=== PATIENT | female | born 1955 | race Caucasian/White ===

== ENCOUNTER 2022-06-14 19:23 | Observation (INO) | payer MEDICARE, MEDICAID, SELFPAY ==
[2022-06-14] VITALS (8 sets, daily range): BP systolic 104–127; BP diastolic 70–78; PULSE 82–93; RESP 20; TEMP 36.5; O2SAT 94–98
--- NOTE | ~2022-06-14 | CT_ITS ---
EXAMINATION: CT brain wo con DATE: 06/14/2022 21:32 INDICATION: Status post fall one month ago. Headache and dizziness. TECHNIQUE: Computed tomography (CT) of the head was performed without intravenous contrast. The dose- length product was 605.33 mGy-cm. Automated exposure control and iterative reconstruction technique were employed. COMPARISON: CT dated 12/28/2018 FINDINGS: Mild generalized atrophy. There are scattered mild periventricular and subcortical white ma tter changes, most likely related to small vessel ischemic disease (microangiopathy). No ventriculome jackson or midline shift. Basilar cisterns are patent. There is intracranial atherosclerosis. There is m ucosal thickening of the maxillary and ethmoid sinuses. There is a left mastoid effusion with scleros is, likely chronic findings. Right mastoid air cells are pneumatized. No depressed skull fractures. IMPRESSION: 1. No acute intracranial abnormality. 2: Chronic age-related findings. Reviewed, dictated and finalized at location A.
--- NOTE | ~2022-06-14 | XR_ITS ---
[XR ribs RT 2V w CXR 2V ] INDICATION: Right rib pain after recent fall TECHNIQUE: Frontal projection of the upper right ribs, frontal projection of the lower right ribs, ob lique projection of all the right ribs, frontal inspiratory chest x-ray for interpretation. FINDINGS: There are no displaced rib fractures identified. There are no soft tissue abnormality see n. There is right basilar airspace consolidation, suspicious for pneumonia. Heart size normal. There is a healed right humeral neck fracture. The lungs are hyperinflated which is consistent with, but no t diagnostic of chronic obstructive pulmonary disease. There are surgical clips overlying the right a pex.. IMPRESSION: 1:No acute displaced rib fractures. 2: Right basilar airspace disease, consistent with pneumonia. Reviewed, dictated and finalized at location A.
--- NOTE | 2022-06-14 20:51 | ED.GENADULT ---
HPI - General Adult General Chief complaint: Extremity Injury, Upper Stated complaint: fall two weeks ago, rib pain. fell again, head nii Time Seen by Provider: 06/14/22 20:51 History of Present Illness HPI narrative: Patient is a 67-year-old woman with history of lung cancer throat cancer with spread to the bon.e Of the left foot. She is an active smoker. History of COPD. She still smokes. The patient fell 1 month ago, on May 14, 2022, 2 times in the same day, initially struck her right lower anterior ribs and then on the 2nd fall, struck her left forehead. She has tried to manage her pain as an outpatient without much success. She comes here for evaluation today 1 month after the fall. No subsequent falls. She does feel dizzy. She also complains of a headache. No motor or sensory complaints. No other complaints such as chest pain or nausea or vomiting. Related Data Home Medications Medication Instructions Recorded Confirmed albuterol sulfate 90 mcg/actuation 2 puff inhalation QID PRN 06/14/22 06/14/22 aerosol inhaler Shortness Of Breath clonazepam 0.5 mg tablet 0.5 mg PO BID 06/14/22 06/14/22 cyclobenzaprine 10 mg tablet 10 mg PO PRN PRN Muscle Spasm 06/14/22 06/14/22 gabapentin 400 mg capsule 400 mg PO BID 06/14/22 06/14/22 mometasone 0.1 % topical solution 1 applic topical PRN PRN Itching 06/14/22 06/14/22 Allergies Allergy/AdvReac Type Severity Reaction Status Date / Time Penicillins Allergy Unknown Verified 06/14/22 21:06 Review of Systems Review of Systems: All systems reviewed & are unremarkable except as noted in HPI and below Constitutional: Constitutional: Reports as per HPI, Reports no additional constitutional complaints, Denies chills, Denies excessive sweating, Denies fatigue, Denies fever(s), Reports headache(s) and Denies weakness Eyes: Eyes: Reports as per HPI, Reports no additional eye complaints, Denies change in vision and Denies photophobia ENT: Reports system reviewed and no additional complaints, except as documented, Reports as per HPI, Denies dysphagia, Denies vertigo, Reports dizziness, Reports headache(s), Denies lip swelling, Denies nasal congestion, Denies sore throat, Denies throat swelling and Denies tongue swelling Cardiovascular: Cardiovascular: Reports as per HPI, Reports no additional cardiovascular complaints, Reports chest pain (right lower chest wall pain), Denies syncope, Denies rapid heart rate and Denies dyspnea Respiratory: Respiratory: Reports as per HPI, Reports no additional respiratory complaints, Denies chest congestion, Denies cough, Denies dyspnea and Denies wheezing Gastrointestinal: Gastrointestinal: Reports as per HPI, Reports no additional gastrointestinal complaints, Denies abdominal pain, Denies constipation, Denies dysphagia, Denies diarrhea, Denies nausea and Denies vomiting Genitourinary: Genitourinary: Reports as per HPI, Denies hematuria, Denies urinary frequency, Denies dysuria, Denies urinary incontinence and Denies urinary urgency Musculoskeletal: Musculoskeletal: Reports no additional musculoskeletal complaints, Denies back pain, Reports myalgias, Denies arthralgias, Denies joint swelling and Denies numbness Integumentary/Breasts: Skin/Breast: Reports system reviewed and no additional complaints, except as docu, Denies pruritus, Denies erythema, Denies rash and Denies skin ulcer Neurologic: Reports system reviewed and no additional complaints, except as documented, Reports as per HPI, Denies confusion, Denies vertigo, Denies dizziness, Denies syncope, Reports headache(s), Denies focal weakness, Denies numbness and Denies weakness Psychiatric: Psychiatric: Reports as per HPI, Denies anxiety, Denies confusion, Denies depression, Denies homicidal ideation and Denies suicidal ideation Endocrine: Endocrine: Reports no additional endocrine complaints, Denies excessive sweating, Denies fatigue, Denies polydipsia and Denies polyuria Hematologic/Lymphatic: Hem
[2022-06-14] MEDS: ACETAMINOPHEN 325 MG TABLET 650 MG PO (21:52)
[2022-06-14] MEDS: HYDROcodone/acetaminophen (*CRX) 5-325 MG TABLET 1 TAB PO (21:53)
[2022-06-14 22:30] LABS: Hematocrit 35.3 % (35.0-42.0); Hemoglobin 11.6 g/dL (11.7-13.8); Mean Corpuscular HGB Conc 32.9 g/dL (32.0-36.0); Mean Corpuscular Volume 97.5 fL (78.0-102.0); Mean Platelet Volume 10.1 fl (9.2-11.8); Platelet Count Result 137 K/mm3 (150-420); Red Blood Count 3.62 M/mm3 (4.20-5.40); Red Cell Distribution Width 14.3 % (11.6-14.4); White Blood Count 2.3 K/mm3 (4.8-10.8)
[2022-06-14 22:49] LABS: Lactic Acid Reflex 1.3 mmol/L (0.4-2.0)
[2022-06-14 22:56] LABS: Alanine Aminotransferase 27 U/L (14-59); Albumin Level 2.9 g/dL (3.4-5.0); Alkaline Phosphatase 96 U/L (46-116); Anion Gap 10 mmol/L (8-16); Aspartate Amino Transferase 39 U/L (15-37); Bilirubin,Total 0.3 mg/dL (0.00-1.00); Blood Urea Nitrogen 22 mg/dL (7-18); CRP 3.9 mg/dL (0.0-0.9); Carbon Dioxide 26 mmol/L (21-32); Chloride 96 mmol/L (98-108); Estimated CRCL calculation 32 ml/min; Estimated Glomerular Filt Rate 37; Glucose 109 mg/dL (70-99); Osmolality Calculated 278 mOsm/kg (285-295); Potassium 3.6 mmol/L (3.5-5.1); Sodium 132 mmol/L (136-145)
[2022-06-14 23:03] LABS: Band Neutrophils Percent 0 % (0-6); Basophils Absolute Manual 0.02 K/mm3 (0-0.1); Basophils Percent Manual 1 % (0-1); Eosinophils Absolute Manual 0.02 K/mm3 (0.02-0.5); Eosinophils Percent Manual 1 % (1-6); Lymphocytes Absolute Manual 1.08 K/mm3 (1.1-4.5); Lymphocytes Percent Manual 47 % (18-44); Monocytes Absolute Manual 0.25 K/mm3 (0.1-0.90); Monocytes Percent Manual 11 % (3-9); Neutrophils Absolute Manual 0.92 K/mm3 (1.7-7.2); Neutrophils Percent Manual 40 % (46-73); Platelet Estimate Adequate (Adequate)
[2022-06-14 23:27] LABS: Erythrocyte Sedimentation Rate 48 mm/hr (0-20)
[2022-06-15] VITALS (13 sets, daily range): BP systolic 101–114; BP diastolic 52–83; PULSE 74–96; RESP 18–22; TEMP 36.4–36.6; O2SAT 91–97; BMI 22.1
[2022-06-15] MEDS: CYCLOBENZAPRINE HCL 10 MG TABLET PO (00:03)
[2022-06-15] MEDS: MORPHINE SULFATE (*CRX) 4 MG/ML INJ IV PUSH (00:04)
[2022-06-15] MEDS: IPRATROPIUM 0.5 MG/ALBUTEROL SULFATE 2.5 MG AMPUL.NEB 3 ML INHALATION ×3 (01:29→12:57)
[2022-06-15] MEDS: guaiFENesin/DEXTROMETHORPHAN 5 ML UDC 10 ML PO (01:33)
[2022-06-15] MEDS: BENZONATATE 100 MG CAPSULE PO ×2 (01:33→13:43)
--- NOTE | 2022-06-15 01:35 | PC.NURSE ---
Order obtained for 23 hr obs admit. Call to Marifer, charge nurse and room received. Report given to Lilliana. Pt VSS at this time.
[2022-06-15 02:38] LABS: Influenza A QL RT-PCR Negative (Negative); Influenza B QL RT-PCR Negative (Negative); SARS-CoV-2 RNA PCR Positive (Negative)
[2022-06-15 02:40] LABS: RSV RNA, RT-PCR Negative (Negative)
[2022-06-15] MEDS: clonazePAM (*CRX) 0.5 MG TABLET PO (03:19)
--- NOTE | 2022-06-15 03:30 | ADMGEN ---
This patient, Shaylee Saxena, was admitted to 2nd Floor Room 204-1. Patient oriented to hospital policies and general routines including ID bracelet, bed and alarms, visiting hours, pain management, procedures, bathroom and other care routines, personal items, smoking policy, room service/diet, and visiting hours. Upon arrival, removed socks and noted black crusty dirt on feet. Socks and clothing dirty. Incontinent of stool in pants. Patient states she has a homemaker through [employer] 5-7 days per week but she(the homemaker) has not been coming as she is having family problems and patient has been relying on son that has a Traumatic Brain Injury to help her and he does not take care of her hygiene. Patient also states she lives behind the son's home and he is 30ft from her house and that she doesn't have heat as the furnace is broken. States She and her son use a small electric heater for heat. Later in the assessment patient states she sometimes would like to go to sleep and not wake up and the lord take her but she has no plans for suicide and has never had plans. She complains of nervousness and a feeling of doom. Since falling she states her left ear, that she has a hx of deafness, has been oozing fluid and her left eye has poor vision, she denies hitting her head during her 2 falls in May. During admission interview from 0150 to 0330 patient requested something for anxiety and cramps. When patient told she received flexaril in ER she said it wasn't going to work. She continued to be anxious and Later she was given Clonazepam for anxiety(see MAR), states she at times doubles up on dose as she feels real anxious and it doesn't work. Informed 1 tablet ordered as per her home medications. Information on how to activate the Rapid Response Team has been discussed. Patient/Family are encouraged to report perceived risks to care and to ask questions if they do not understand what they are told or what they should do.
[2022-06-15 05:21] LABS: Hematocrit 31.8 % (35.0-42.0); Hemoglobin 10.5 g/dL (11.7-13.8); Mean Corpuscular Hemoglobin 32.1 pg (27.0-31.0); Mean Corpuscular Volume 97.2 fL (78.0-102.0); Mean Platelet Volume 10.6 fl (9.2-11.8); Platelet Count Result 118 K/mm3 (150-420); Red Blood Count 3.27 M/mm3 (4.20-5.40); Red Cell Distribution Width 14.2 % (11.6-14.4); White Blood Count 1.8 K/mm3 (4.8-10.8)
[2022-06-15 05:37] LABS: Anion Gap 6 mmol/L (8-16); Blood Urea Nitrogen 22 mg/dL (7-18); Calcium 7.8 mg/dL (8.5-10.1); Carbon Dioxide 28 mmol/L (21-32); Chloride 99 mmol/L (98-108); Estimated CRCL calculation 30 ml/min; Estimated Glomerular Filt Rate 34; Glucose 140 mg/dL (70-99); Osmolality Calculated 281 mOsm/kg (285-295); Sodium 133 mmol/L (136-145)
[2022-06-15 05:48] LABS: Band Neutrophils Percent 0 % (0-6); Basophils Absolute Manual 0.03 K/mm3 (0-0.1); Basophils Percent Manual 2 % (0-1); Eosinophils Absolute Manual 0.03 K/mm3 (0.02-0.5); Eosinophils Percent Manual 2 % (1-6); Lymphocytes Percent Manual 56 % (18-44); Monocytes Absolute Manual 0.23 K/mm3 (0.1-0.90); Monocytes Percent Manual 13 % (3-9); Neutrophils Absolute Manual 0.48 K/mm3 (1.7-7.2); Neutrophils Percent Manual 27 % (46-73); Platelet Estimate Adequate (Adequate)
[2022-06-15] MEDS: ENOXAPARIN 40 MG/0.4 ML SYRINGE SUB-Q (08:29)
[2022-06-15] MEDS: GABAPENTIN 400 MG CAPSULE PO (08:29)
[2022-06-15] MEDS: HYDROcodone/acetaminophen (*CRX) 5-325 MG TABLET 1 TAB PO ×2 (10:13→13:44)
--- NOTE | 2022-06-15 11:50 | PC.NURSE ---
Nurse Practioner spoke with patient regarding statement that she would like to go to sleep and not wake up. Patient stated the comment was taken out of context. She is not suicidal and has not thought about hurting herself
--- NOTE | 2022-06-15 11:56 | PC.NURSE ---
Patient has a homemaker and her son who assist her and provide her meals. She uses public transportation provided by [facility]. She is aware of other food resources and financial assistance
[2022-06-15] MEDS: guaiFENesin/DEXTROMETHORPHAN 5 ML UDC PO (13:45)
--- NOTE | 2022-06-15 14:36 | PM.SD2 ---
Same Day Admit/Disch: HPI History of Present Illness Chief complaint: PNEUMONIA Narrative: Shaylee Saxena is a 67 year old female ?Patient is a 67-year-old woman with history of lung cancer throat cancer with spread to the bon.e ? Of the left foot.? She is an active smoker.? History of COPD.? She still smokes. The patient fell 1 month ago, on May 14, 2022, 2 times in the same day, initially struck her right lower anterior ribs and then? on the 2nd fall, struck her left forehead.? She has tried to manage her pain as an outpatient without much success.? She comes here for evaluation today 1 month after the fall.? No subsequent falls.? She does feel dizzy.? She also complains of a headache.? No motor or sensory complaints.? No other complaints such as chest pain or nausea or vomiting. [facility] Past Medical History Medical History (Updated 06/15/22 @ 14:39 by Venice Colin NP) Acute kidney failure COVID-19 Falls Smoking Social anxiety disorder Viral respiratory illness Family History Family History (Updated 06/15/22 @ 03:04 by Lilliana Benavides RN) Mother Colon cancer Father Heart disease Sibling Diabetes mellitus Heart disease Sibling Heart disease Sibling Diabetes mellitus Heart disease Sibling Heart disease Social History Social History Smoking packs per day: 2 Smoking cigarettes per day: 40.0 Years smoked: 51 Smoking pack-years: 102.00 Smoking status: Light tobacco smoker Tobacco type: cigarettes Second hand tobacco smoke exposure: Yes (family members smoke in front of her) Additional smoking assessment comments: states recently slowed down as she felt ill Alcohol intake: former Substance use type: does not use Lack of Transportation: YES Lack of Food: Often True Current Housing: I Have Housing Concerned About Future Housing: No Difficulty Paying Gas/Electric Bills: No Difficulty Paying for Meds: No Currently Unemployed: No Education: Grade School Difficulty w/ Childcare or Family Care: No Spiritual care concerns: Yes ([employer], would like prayers) Same Day Admit/Disch: Med Pre-admit Medications Home Medications Medication Instructions Recorded Confirmed Type clonazepam 0.5 mg tablet 0.5 mg PO BID 06/14/22 06/14/22 History cyclobenzaprine 10 mg tablet 10 mg PO PRN PRN Muscle Spasm 06/14/22 06/14/22 History gabapentin 400 mg capsule 400 mg PO BID 06/14/22 06/14/22 History mometasone 0.1 % topical solution 1 applic topical PRN PRN Itching 06/14/22 06/14/22 History albuterol sulfate 90 mcg/actuation 2 puff inhalation QID PRN 06/15/22 Rx aerosol inhaler Shortness Of Breath #8.5 grams azithromycin 250 mg tablet See Rx Instructions PO .COMPLEX #6 06/15/22 Rx (Zithromax Z-Buster) tabs benzonatate 100 mg capsule 100 mg PO TID PRN Cough #30 caps 06/15/22 Rx benzonatate 100 mg capsule 100 mg PO TID PRN cough #20 caps 06/15/22 Rx cyclobenzaprine 5 mg tablet 5 mg PO TID PRN muscle spasm #14 06/15/22 Rx tabs hydrocodone 5 mg-acetaminophen 325 1 tablet PO Q8H PRN pain #14 tabs 06/15/22 Rx mg tablet nirmatrelvir 150 mg-ritonavir 100 See Rx Instructions PO .COMPLEX 06/15/22 Rx mg tablets in a dose pack (EUA) #20 ea (Paxlovid) ondansetron 4 mg disintegrating 4 mg PO Q8H PRN nausea and 06/15/22 Rx tablet vomiting #10 tabs Exam Narrative: GENERAL:Dishevleved frail lady and in no acute distress. HEAD:Normocephalic, atraumatic. EYES: PERRLA and EOMI. ENT: Nares clear, no rhinorrhea or epistaxis. Mucous membranes moist. CHEST: Course to auscultation. No respiratory distress. coughing at times HEART: Regular rate and rhythm.Normal peripheral pulses. ABDOMEN: Soft, nontender, nondistended, normal active bowel sounds. EXTREMITIES: Normal range of motion. No edema. SKIN: Warm, dry, no rash. NEURO: No focal deficits. Alert and oriented x3. DS: Data Data Completed and Pending Lab
[2022-06-15 15:20] LABS: Appearance Urine Clear (Clear); Bilirubin Urine Negative (Negative); Blood Urine Negative (Negative); Color Urine Light Yellow (Yellow); Glucose Urine UA Negative (Negative); Ketones Urine Negative (Negative); Leukocyte Esterase Ur Negative LEU/UL (Negative); Nitrate Urine Negative (Negative); Protein Urine Negative (Negative); Urobilinogen Urine 0.2 mg/dL (0.2-1.0)
[2022-06-15 15:29] LABS: Add Urine Microscopic? NO
--- NOTE | 2022-06-15 15:29 | PC.NURSE ---
Patient given discharge instructions and and hydrocodone script. [employer] called. All family refused to transport family or did not answer phone
--- NOTE | 2022-06-15 15:33 | PC.NURSE ---
Patient informed UA was negative.
--- NOTE | 2022-06-15 15:49 | PC.NURSE ---
Staff paid for taxi and to have patient taken to pharmacy for medications
--- NOTE | 2022-06-15 15:50 | PC.NURSE ---
Patient taken to front lobby via wheelchair to taxi.. transferred self to taxi
--- NOTE | 2022-06-17 09:09 | PCCCNOTE ---
Pt had expressed concerns for not having enough money to buy food. Since pt has already discharged Care Coordination mailed Shaylee resources where she can get free food.
--- NOTE | 2022-06-17 11:46 | PC.NURSE ---
Invalid phone number for discharge call back.
== END 2022-06-15 15:40 | disposition home or self-care (01) ==
LOC: CHSED 23:50 → CHS2ND 06-15 01:41
PROVIDERS: Nurse Practitioner Family; Admitting Provider Internal Medicine; Emergency Provider Emergency Medicine; PCP Internal Medicine; Visit Provider Internal Medicine
DX: J18.9 Pneumonia, unspecified organism (principal); U07.1 COVID-19; C34.90 Malignant neoplasm of unspecified part of unspecified bronchus or lung; C79.51 Secondary malignant neoplasm of bone; J44.9 Chronic obstructive pulmonary disease, unspecified; F17.210 Nicotine dependence, cigarettes, uncomplicated; Z91.81 History of falling; N17.9 Acute kidney failure, unspecified
CPT/HCPCS: 36415; 70450; 71046; 71100; 80048; 80053; 81003; 83605; 85025; 85652; 86140; 87040; 87637; 94640; 96365; 96367; 96372; 96375; 99285; A9270; G0378; J0456; J0696; J1650; J2270

== ENCOUNTER 2022-12-02 19:33 | Emergency (ER) | payer MEDICARE, MEDICAID, SELFPAY ==
--- NOTE | ~2022-12-02 | CT_ITS ---
Non-contrast Head CT History: Headache COMPARISON: 06/14/2022 Technique: Axial non-contrast imaging of the brain was performed. Dose reduction technique was used on this scan by utilizing automated exposure control and iterative reconstruction technique. The dose -length product (DLP) was 605.33 mGy-cm. Findings: There is no evidence of intracranial hemorrhage, mass lesion, or acute infarct. Brain par enchyma appears normal. The ventricles and subarachnoid spaces are normal in size. The calvarium ap pears normal. The visualized paranasal sinuses and mastoid air cells are clear. Impression: No significant abnormality seen. Reviewed, dictated and finalized at location . Impression: No significant abnormality seen.
[2022-12-02 19:34] VITALS: BP 131/70; PULSE 97; RESP 20; TEMP 37.2; O2SAT 94
--- NOTE | 2022-12-02 20:28 | ECG_ITS ---
Measurements Intervals [place] Rate: 83 P: 81 [place]: 184 QRS: 67 QRSD: 82 T: 77 QT: 396 QTc: 467 Interpretive Statements SINUS RHYTHM BASELINE ARTIFACT- I, II, AVR, AVL, AVF, V1 NORMAL ECG NO PREVIOUS ECG AVAILABLE FOR COMPARISON Electronically Signed On 12-03-2022 7:10:27 CDT by Ha Zheng D.O.
--- NOTE | 2022-12-02 20:30 | ED.GENADULT ---
HPI - General Adult General Chief complaint: Dizziness Stated complaint: Dizziness History of Present Illness HPI narrative: Shaylee is a 67F with a PMH of smoking, pneumonia, CAD s/p stents and prior CVA presented to the ED with several months of dizziness and dysequilibrium. She has found herself always needing to be holding on to things. Today she lost her balance and had to lower her self to the ground. There was no acute change, trauma or severe change that brought her in specifically today. She reports the symptoms are constant even when she is laying down. No vision or hearing changes today. Related Data Home Medications Medication Instructions Recorded Confirmed clonazepam 0.5 mg tablet 0.5 mg PO BID 06/14/22 06/14/22 cyclobenzaprine 10 mg tablet 10 mg PO PRN PRN Muscle Spasm 06/14/22 06/14/22 gabapentin 400 mg capsule 400 mg PO BID 06/14/22 06/14/22 mometasone 0.1 % topical solution 1 applic topical PRN PRN Itching 06/14/22 06/14/22 Allergies Allergy/AdvReac Type Severity Reaction Status Date / Time Penicillins Allergy Unknown Verified 06/14/22 21:06 Review of Systems Review of Systems: All systems reviewed & are unremarkable except as noted in HPI and below PMFSH Past Medical History Medical History Acute kidney failure COVID-19 Falls Smoking Social anxiety disorder Viral respiratory illness Family History Family History Mother Colon cancer Father Heart disease Sibling Diabetes mellitus Heart disease Sibling Heart disease Sibling Diabetes mellitus Heart disease Sibling Heart disease Social History Social History Smoking packs per day: 2 Smoking cigarettes per day: 40.0 Years smoked: 51 Smoking pack-years: 102.00 Smoking status: Light tobacco smoker Tobacco type: cigarettes Second hand tobacco smoke exposure: Yes (family members smoke in front of her) Additional smoking assessment comments: states recently slowed down as she felt ill Alcohol intake: former Substance use type: does not use Lack of Transportation: YES Lack of Food: Often True Current Housing: I Have Housing Concerned About Future Housing: No Difficulty Paying Gas/Electric Bills: No Difficulty Paying for Meds: No Currently Unemployed: No Education: Grade School Difficulty w/ Childcare or Family Care: No Spiritual care concerns: Yes ([employer] of [employer], would like prayers) Exam Const: General: no acute distress and alert; No confusion Nutritional Appearance: well nourished Orientation/consciousness: patient oriented x3 HENMT: Head: normal to inspection Ears: external ears normal Face/Nose/Sinus: Normal external nose present Face and sinus: normal facial exam Eyes: Conjunctivae: conjunctivae normal Pupils: Equal, round and reactive pupils present EOM: EOMs intact bilaterally Neck: Neck: normal visual inspection Chest: Chest palpation & inspection: normal inspection of the chest Resp: Effort & Inspection: normal respiratory effort Cardio: Rate: regular rate GI: Inspection: non-distended GI Palp: Yes Soft to palpation, No Tenderness to palpation present (GI) and No Guarding due to palpation present (GI) : General: Yes no CVA tenderness Skin: General skin exam: normal color Rashes: no rashes Neuro: General: patient oriented x3 and moves all extremities Speech: normal speech Other: Multiple beats of nystagmus laterally and 2 beats vertically. Normal head impulse but right eye corrects on HINTS exam Extrem: General: normal to inspection Psych: Mental Status: mental status grossly normal Course Course Emergency Course: Ordered EKG, labs and CT as symptoms are concerning for prior CVA CBC was largely unremarkable. CMP showed continued CKD and slightly low potassium. CT Impression: No
[2022-12-02 20:50] LABS: Basophils Absolute Auto 0.06 K/mm3 (0.00-0.10); Basophils Percent Auto 1.3 % (0.0-1.0); Eosinophils Absolute Auto 0.11 K/mm3 (0.02-0.50); Eosinophils Percent Auto 2.3 % (1.0-6.0); Hematocrit 41.9 % (35.0-42.0); Hemoglobin 13.9 g/dL (11.7-13.8); Immature Granulocyte Absolute 0.01 K/mm3 (0.00-0.00); Immature Granulocyte Percent A 0.2 % (0.0-0.0); Lymphocytes Absolute Auto 1.71 K/mm3 (1.10-4.50); Lymphocytes Percent Auto 35.8 % (18.0-42.0); Mean Corpuscular HGB Conc 33.2 g/dL (32.0-36.0); Mean Corpuscular Hemoglobin 33.3 pg (27.0-31.0); Mean Corpuscular Volume 100.2 fL (78.0-102.0); Mean Platelet Volume 10.4 fl (9.2-11.8); Monocytes Absolute Auto 0.36 K/mm3 (0.10-0.90); Monocytes Percent Auto 7.5 % (2.0-11.0); Neutrophils Absolute Auto 2.5 K/mm3 (1.7-7.2); Neutrophils Percent Auto 52.9 % (50.0-70.0); Platelet Count Result 202 K/mm3 (150-420); Red Blood Count 4.18 M/mm3 (4.20-5.40); Red Cell Distribution Width 14.1 % (11.6-14.4); White Blood Count 4.8 K/mm3 (4.8-10.8)
[2022-12-02 21:30] VITALS: BP 122/71; PULSE 74; RESP 18; O2SAT 98
[2022-12-02 22:00] LABS: Alanine Aminotransferase 17 U/L (14-59); Albumin Level 3.6 g/dL (3.4-5.0); Alkaline Phosphatase 89 U/L (46-116); Anion Gap 10 mmol/L (8-16); Aspartate Amino Transferase 17 U/L (15-37); Bilirubin,Total 0.2 mg/dL (0.00-1.00); Blood Urea Nitrogen 19 mg/dL (7-18); Calcium 8.8 mg/dL (8.5-10.1); Carbon Dioxide 30 mmol/L (21-32); Chloride 104 mmol/L (98-108); Estimated CRCL calculation 27 ml/min; Estimated Glomerular Filt Rate 30; Glucose 98 mg/dL (70-99); Magnesium 1.9 mg/dL (1.8-2.4); Osmolality Calculated 300 mOsm/kg (285-295); Potassium 3.3 mmol/L (3.5-5.1); Sodium 144 mmol/L (136-145); Total Protein 7.1 g/dL (6.4-8.2)
[2022-12-02] MEDS: MECLIZINE HCL 25 MG TABLET 12.5 MG PO (22:38)
[2022-12-02 22:50] VITALS: BP 136/84; PULSE 75; RESP 20; TEMP 36.8; O2SAT 98
== END 2022-12-02 22:53 | disposition home or self-care (01) ==
PROVIDERS: Emergency Provider Family Medicine; PCP Internal Medicine
DX: R42 Dizziness and giddiness (principal); I25.10 Atherosclerotic heart disease of native coronary artery without angina pectoris; F17.210 Nicotine dependence, cigarettes, uncomplicated; Z86.73 Personal history of transient ischemic attack (TIA), and cerebral infarction without residual deficits
CPT/HCPCS: 36415; 70450; 80053; 83735; 85025; 93005; 99284; A9270

== ENCOUNTER 2023-02-12 16:06 | Emergency (ER) | payer MEDICARE, MEDICAID, SELFPAY ==
[2023-02-12] VITALS (23 sets, daily range): BP systolic 156–181; BP diastolic 82–119; PULSE 92–108; RESP 17–23; TEMP 37.1–37.3; O2SAT 94–97
--- NOTE | ~2023-02-12 | XR_ITS ---
EXAMINATION: XR chest 1V portable DATE: 02/12/2023 17:19 INDICATION: Dizziness. TECHNIQUE: A single frontal view of the chest was obtained. COMPARISON: Chest 2 views 06/14/2022, chest CT 04/09/2012 FINDINGS: A staple line and brachytherapy seeds overlie right upper lung zone. There is mild scarring at left lung base. No pleural effusion or pneumothorax. The heart size is normal. There are surgical changes of cervical spine. There is an old healed left rib fracture. IMPRESSION: 1. Mild scarring at left lung base. Reviewed, dictated and finalized at location A. 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
--- NOTE | ~2023-02-12 | CT_ITS ---
EXAMINATION: CT brain wo con DATE: 02/12/2023 17:18 INDICATION: Multiple falls. Dizziness. History of prior cerebrovascular accident TECHNIQUE: Computed tomography (CT) of the head was performed without intravenous contrast. The mA wa s adjusted according to patient size. Iterative reconstruction technique was employed. Exam dose: 60 5.33 mGy-cm total exam DLP. COMPARISON: 11/2022 CT brain FINDINGS: Bilateral vertebral artery, basilar artery and bilateral carotid siphon internal carotid ar simeon calcifications. There is nonspecific diminished attenuation of cerebral white matter, likely due to chronic small vessel ischemic changes. No intracranial mass lesion or hemorrhage or cerebrovascular accident, midline shift or mass effect i s evident. No subdural or epidural hematoma. Mild to moderate mucoperiosteal thickening of the left maxillary sinus. The included paranasal sinuse s and the mastoid air cells are otherwise unremarkable. No recent fracture or bone destruction of the cranial vault. IMPRESSION: Cerebral atherosclerosis No acute intracranial finding Reviewed, dictated and finalized at [facility]. Reviewed, dictated and finalized at [facility]. D SALES AGENT
--- NOTE | ~2023-02-12 | CT_ITS ---
EXAMINATION: CTA chest PE protocol DATE: 02/12/2023 18:24 INDICATION: DIZZY with positive D-dimer TECHNIQUE: Computed tomography angiography (CTA) of the chest was performed with 100 mL Omnipaque-350 intravenous contrast timed to evaluate the pulmonary arteries. Coronal maximum intensity projection 3D-reconstructions were created by the technologist. The dose-length product (DLP) was 190.38 mGy-cm. Automated exposure control and iterative reconstruction technique were employed. COMPARISON: X-ray chest, same date CT thorax 04/09/2012 666. FINDINGS: Lung parenchyma and airways: Senescent and emphysematous change. Right middle lobe scar. Right upper lobe scar and surgical clips. Pleura: Unremarkable. Thoracic inlet, axillae and chest wall: Unremarkable. Thoracic aorta: Mild arch calcification. Mediastinum: Normal. Heart and pericardium: Normal. Coronary artery calcifications: Mild. Upper abdomen: No significant finding. Bones: Mild anterior wedge deformity at L2. Pulmonary arteries: Study quality: Adequate. No pulmonary emboli detected. IMPRESSION: No CT evidence of acute pulmonary embolus. No acute intrathoracic process detected. Right middle lobe scar, possibly post therapeutic/post radiation change. Mild wedge compression fracture at L2 of uncertain age. Reviewed, dictated and finalized at [facility]. MONIA DISTILLER IMPRESSION: No CT evidence of acute pulmonary embolus. No acute intrathoracic process detec jennifer. Right middle lobe scar, possibly post therapeutic/post radiation change. Mild wedge compression fracture at L2 of uncertain age.
--- NOTE | 2023-02-12 16:27 | ED.SOB ---
HPI - SOB/Dyspnea General Chief Complaint: Shortness of Breath/Dyspnea Stated Complaint: SOB Time Seen by Provider: 02/12/23 16:27 Source: patient Mode of arrival: ambulatory Limitations: no limitations History of Present Illness HPI Narrative: 67-year-old female, 102 pack year smoker with a history of anxiety, pneumonia, coronary artery disease status post stent, CVA, renal insufficiency, left lung cancer status post lobectomy cis/ RT in 2012, metastatic lesion in the left leg status post RT, left tympanic membrane rupture with constant draining presents to the ER with -- shortness of breath -- dizziness and gait instability which has been off and on for the past few months. she fell 1 week ago and has crusts on forehead and nose -- hypertension MD elicited complaint: shortness of breath and cough Pertinent past history: COPD Onset (ago): day(s) Timing: constant Exacerbating factors: exertion Relieving factors: nothing Known history of: COPD Associated symptoms: pain with inspiration, cough, wheezing, chest congestion and dizziness Related Data Home Medications Medication Instructions Recorded Confirmed clonazepam 0.5 mg tablet 0.5 mg PO BID 06/14/22 06/14/22 cyclobenzaprine 10 mg tablet 10 mg PO PRN PRN Muscle Spasm 06/14/22 06/14/22 gabapentin 400 mg capsule 400 mg PO BID 06/14/22 06/14/22 mometasone 0.1 % topical solution 1 applic topical PRN PRN Itching 06/14/22 06/14/22 Allergies Allergy/AdvReac Type Severity Reaction Status Date / Time Penicillins Allergy Unknown Verified 06/14/22 21:06 Review of Systems Review of Systems: All systems reviewed & are unremarkable except as noted in HPI and below Constitutional: Constitutional: Reports as per HPI, Reports no additional constitutional complaints, Reports fatigue and Reports weakness Eyes: Eyes: Reports as per HPI Comments: decreased vision in the left eye possibly related to stroke. ENT: Reports system reviewed and no additional complaints, except as documented and Reports as per HPI Comments: constantly draining left ear secondary to tympanic membrane perforation Cardiovascular: Cardiovascular: Reports as per HPI and Reports no additional cardiovascular complaints Respiratory: Respiratory: Reports as per HPI, Reports no additional respiratory complaints, Reports chest congestion, Reports cough and Reports dyspnea Gastrointestinal: Gastrointestinal: Reports as per HPI and Reports no additional gastrointestinal complaints Genitourinary: Genitourinary: Reports no additional female genitourinary complaints Musculoskeletal: Musculoskeletal: Reports no additional musculoskeletal complaints and Reports as per HPI Integumentary/Breasts: Skin/Breast: Reports system reviewed and no additional complaints, except as docu and Reports as per HPI Comments: healed abrasions on the forehead and nose Neurologic: Reports system reviewed and no additional complaints, except as documented and Reports as per HPI Comments: left eye blindness Psychiatric: Psychiatric: Reports no additional psychiatric complaints and Reports as per HPI Endocrine: Endocrine: Reports no additional endocrine complaints and Reports as per HPI Hematologic/Lymphatic: Hematologic/Lymphatic: Reports no additional hematologic/lymphatic complaints and Reports as per HPI Allergic/Immunologic: Allergic/Immunologic: Reports no additional allergic/immunologic complaints and Reports as per HPI PMF Past Medical History Medical History Acute kidney failure COVID-19 Falls Smoking Social anxiety disorder Viral respiratory illness Family History Family History Mother Colon cancer Father Heart disease Sibling Diabetes mellitus Heart disease Sibling Heart disease Sibling Diabetes mellitus Heart disease Sibling Heart disease Social History So
--- NOTE | 2023-02-12 16:53 | ECG_ITS ---
Measurements Intervals [place] Rate: 96 P: 83 [place]: 157 QRS: 73 QRSD: 81 T: 67 QT: 390 QTc: 493 Interpretive Statements SINUS RHYTHM BORDERLINE ST ABNORMALITY- ANTEROLATERAL LEADS BASELINE ARTIFACT- I, II, III, AVR, AVL, AVF, V1 BORDERLINE ECG COMPARED TO ECG 12/02/2022 20:45:38 ST (T WAVE) DEVIATION NOW PRESENT Electronically Signed On 02-12-2023 18:51:18 BACK HAND by Ha Zheng D.O.
[2023-02-12 17:02] LABS: Influenza A QL RT-PCR Negative (Negative); Influenza B QL RT-PCR Negative (Negative); RSV RNA, RT-PCR Negative (Negative); SARS-CoV-2 RNA PCR Negative (Negative)
[2023-02-12 17:06] LABS: Appearance Urine Clear (Clear); Bilirubin Urine Negative (Negative); Blood Urine Trace-Intact (Negative); Color Urine Light Yellow (Yellow); Glucose Urine UA Negative (Negative); Ketones Urine Negative (Negative); Leukocyte Esterase Ur Trace LEU/UL (Negative); Nitrate Urine Negative (Negative); Protein Urine 2+ (Negative); Specific Grav Ur <= 1.005 (1.010-1.020); Urobilinogen Urine 0.2 mg/dL (0.2-1.0); pH Urine 6.5 (5.0-8.0)
[2023-02-12 17:14] LABS: Add Urine Microscopic? YES; RBC Urine 0-2 /hpf (0-2); Squamous Epithelial Cell Urine Rare /hpf (Few); WBC Urine 0-3 /hpf (0-3)
[2023-02-12 17:15] LABS: Bacteria Urine Rare /hpf
[2023-02-12 17:32] LABS: Base Excess ABG 3.7 mmol/L (0-2); Oxygen Content ABG 19.9 %vol (16.0-22.0); Oxygen Saturation ABG 96.8 % (95-97); Oxyhemoglobin 92.2 % (94-100); PCO2 ABG 25.9 mmHg (35-45); PO2 ABG 80.3 mmHg (80-90); Total Hemoglobin 15.3 g/dL (12.0-18.0); pH ABG 7.59 (7.35-7.45)
[2023-02-12 17:33] LABS: Basophils Absolute Auto 0.03 K/mm3 (0.00-0.10); Basophils Percent Auto 0.4 % (0.0-1.0); Eosinophils Absolute Auto 0.01 K/mm3 (0.02-0.50); Eosinophils Percent Auto 0.1 % (1.0-6.0); Hematocrit 41.4 % (35.0-42.0); Hemoglobin 14.3 g/dL (11.7-13.8); Immature Granulocyte Absolute 0.03 K/mm3 (0.00-0.00); Immature Granulocyte Percent A 0.4 % (0.0-0.0); Immature Platelet Fraction Pct 5.2 % (1.0-7.0); Lymphocytes Absolute Auto 1.04 K/mm3 (1.10-4.50); Lymphocytes Percent Auto 13.3 % (18.0-42.0); Mean Corpuscular HGB Conc 34.5 g/dL (32.0-36.0); Mean Corpuscular Hemoglobin 32.6 pg (27.0-31.0); Mean Corpuscular Volume 94.5 fL (78.0-102.0); Mean Platelet Volume 10.3 fl (9.2-11.8); Monocytes Percent Auto 6.4 % (2.0-11.0); Neutrophils Absolute Auto 6.2 K/mm3 (1.7-7.2); Neutrophils Percent Auto 79.4 % (50.0-70.0); Platelet Count Result 146 K/mm3 (150-420); Red Blood Count 4.38 M/mm3 (4.20-5.40); White Blood Count 7.8 K/mm3 (4.8-10.8)
[2023-02-12 17:34] LABS: Device ROOM AIR; Modified Allen's Test Pass; Site Drawn RIGHT RADIAL
[2023-02-12 17:46] LABS: Partial Thromboplastin Time 31.8 SEC (23.90-30.70); Prothrombin Time 11.2 Seconds (9.50-12.10)
[2023-02-12 17:49] LABS: D Dimer 1.18 mg/L (0.19-0.50)
[2023-02-12 17:51] LABS: Lactic Acid Reflex 2.3 mmol/L (0.4-2.0)
[2023-02-12 17:53] LABS: Alanine Aminotransferase 35 U/L (14-59); Albumin Level 3.8 g/dL (3.4-5.0); Alkaline Phosphatase 129 U/L (46-116); Anion Gap 10 mmol/L (8-16); Aspartate Amino Transferase 37 U/L (15-37); Bilirubin,Total 1.5 mg/dL (0.00-1.00); Blood Urea Nitrogen 15 mg/dL (7-18); Calcium 9.1 mg/dL (8.5-10.1); Carbon Dioxide 30 mmol/L (21-32); Chloride 92 mmol/L (98-108); Estimated CRCL calculation 35 ml/min; Estimated Glomerular Filt Rate 42; Glucose 143 mg/dL (70-99); Magnesium 1.4 mg/dL (1.8-2.4); NT Pro B Type Natriuretic Pept 3352 pg/mL (0-125); Osmolality Calculated 276 mOsm/kg (285-295); Potassium 3.3 mmol/L (3.5-5.1); Sodium 132 mmol/L (136-145); Total Protein 7.5 g/dL (6.4-8.2)
[2023-02-12 17:54] LABS: Troponin I 32.4 ng/L (0.00-60.4)
[2023-02-12] MEDS: LACTATED RINGERS 500 ML 999 ML IV CONT (18:23)
--- NOTE | 2023-02-12 18:26 | PC.NURSE ---
pt anxious about family members. driving at night. explained awaiting ct results. call arboleda in reach. voiced understanding
[2023-02-12] MEDS: MAGNESIUM SULF 4 GM/WATER100ML 4 GM/100 ML BAG IVPB (18:49)
[2023-02-12] MEDS: POTASSIUM CHLORIDE 20 MEQ PACKET (FOR LIQUID) PO (18:54)
--- NOTE | 2023-02-12 19:03 | PC.NURSE ---
pt resting per cot. son waiting in waiting room. awaiting ct results. call arboleda in reach. pt up to bathroom x4, bedpan x1 at this time.
--- NOTE | 2023-02-12 19:04 | PC.NURSE ---
report to raya yeager. all questions answered.
--- NOTE | 2023-02-12 19:10 | PC.NURSE ---
family in room with pt. report to raya yeager . all questions answered
[2023-02-12] MEDS: ONDANSETRON INJ 4 MG/2 ML VIAL IV PUSH (19:43)
[2023-02-12 20:28] LABS: Reflex Lactic Acid Yes or No Add Lactic
== END 2023-02-12 19:52 | disposition home or self-care (01) ==
PROVIDERS: Emergency Provider Internal Medicine Critical Care Medicine; PCP Internal Medicine
DX: R26.89 Other abnormalities of gait and mobility (principal); J44.1 Chronic obstructive pulmonary disease with (acute) exacerbation; I25.10 Atherosclerotic heart disease of native coronary artery without angina pectoris; F17.210 Nicotine dependence, cigarettes, uncomplicated; Z86.73 Personal history of transient ischemic attack (TIA), and cerebral infarction without residual deficits; Z85.118 Personal history of other malignant neoplasm of bronchus and lung; Z20.822 Contact with and (suspected) exposure to COVID-19
CPT/HCPCS: 36415; 36600; 70450; 71045; 71275; 80053; 81001; 82805; 83605; 83735; 83880; 84484; 85025; 85055; 85380; 85610; 85730; 87637; 93005; 96365; 96375; 99284; A9270; J2405; J3475; J7120; Q9967

== ENCOUNTER 2024-09-06 17:38 | Emergency (ER) | payer OTHER, SELFPAY ==
--- NOTE | ~2024-09-06 | XR_ITS ---
EXAMINATION: XR chest 2V Exam Date/Time: 09/06/2024 17:40 CDT HISTORY: sob Comparison: 02/12/2023, x-ray chest and CTPA. RESULT: Lines, tubes, and devices: Right apical surgical moose and brachytherapy implants. The cervical sp ine cerclage wires. Lungs and pleura: Hyperexpanded lungs. Right middle lobe scar/atelectasis. Bilateral hemidiaphragm t enting. No pneumothorax, pleural effusion, or focal consolidation. Cardiomediastinal silhouette: Stable. Other: No acute osseous or upper abdominal finding. Old left posterior rib fracture healed in mild d eformity. IMPRESSION: No acute cardiopulmonary process. Reviewed, dictated and finalized at [facility].
--- NOTE | 2024-09-06 17:44 | ECG_ITS ---
Test Date: 2024-09-06 18:06:49 Measurements Intervals [place] Rate: 105 P: 78 MN: 180 QRS: 62 QRSD: 84 T: 91 QT: 351 QTc: 465 Interpretive Statements SINUS TACHYCARDIA NONSPECIFIC ST & T-WAVE ABNORMALITY- ANTEROLAT/HIGH LAT LEADS BASELINE WANDER- V1-V2, V4, V6 BORDERLINE ECG No previous ECG available for comparison Electronically Signed On 09-06-2024 18:44:20 CDT by Ha Zheng D.O.
[2024-09-06 17:45] VITALS: PULSE 101
[2024-09-06 18:00] VITALS: PULSE 96; RESP 22; O2SAT 94
[2024-09-06 18:02] VITALS: PULSE 104; RESP 22
[2024-09-06] MEDS: IPRATROPIUM 0.5 MG/ALBUTEROL SULFATE 2.5 MG AMPUL.NEB 3 ML INHALATION (18:02)
[2024-09-06 18:15] VITALS: PULSE 93; PULSE 97; RESP 20; RESP 24; O2SAT 100; O2SAT 91
[2024-09-06 18:17] VITALS: BP 130/78; PULSE 94; RESP 26; O2SAT 99
[2024-09-06 18:17] LABS: Base Excess ABG -7.1 mmol/L (0-2); Carboxyhemoglobin 5.2 % (0-1.5); HCO3 ABG 19.1 mmol/L (23-29); Methemoglobin ABG 0.3 % (0-1.5); Oxygen Content ABG 20.9 %vol (16.0-22.0); Oxygen Saturation ABG 98.8 % (95-97); Oxyhemoglobin 93.4 % (94-100); PCO2 ABG 41.1 mmHg (35-45); PO2 ABG 192.3 mmHg (75-85); Reduced Hemoglobin 1.1 % (0-1.5); pH ABG 7.29 (7.35-7.45)
[2024-09-06] MEDS: methylPREDNISolone SOD SUCC 125 MG VIAL IV PUSH (18:17)
[2024-09-06 18:20] LABS: Basophils Absolute Auto 0.12 K/mm3 (0.00-0.10); Eosinophils Absolute Auto 0.02 K/mm3 (0.02-0.50); Eosinophils Percent Auto 0.3 % (1.0-6.0); Hematocrit 46.1 % (35.0-42.0); Hemoglobin 14.9 g/dL (11.7-13.8); Immature Granulocyte Absolute 0.03 K/mm3 (0.00-0.00); Immature Granulocyte Percent A 0.5 % (0.0-0.0); Lymphocytes Absolute Auto 1.06 K/mm3 (1.10-4.50); Mean Corpuscular HGB Conc 32.3 g/dL (32-36); Mean Corpuscular Hemoglobin 33.3 pg (27.0-31.0); Mean Corpuscular Volume 102.9 fL (78.0-102.0); Mean Platelet Volume 10.2 fl (9.2-11.8); Monocytes Absolute Auto 0.28 K/mm3 (0.10-0.90); Monocytes Percent Auto 4.7 % (2.0-11.0); Neutrophils Absolute Auto 4.39 K/mm3 (1.70-7.20); Neutrophils Percent Auto 74.5 % (50.0-70.0); Platelet Count Result 207 K/mm3 (150-420); Red Blood Count 4.48 M/mm3 (4.20-5.40); Red Cell Distribution Width 14.6 % (11.6-14.4); White Blood Count 5.9 K/mm3 (4.8-10.8)
[2024-09-06 18:21] LABS: Modified Allen's Test Pass; Site Drawn LEFT RADIAL
--- NOTE | 2024-09-06 18:21 | PC.NURSE ---
pt agitated with staff when trying to explain plan of care, orders placed by doctor.
[2024-09-06 18:22] LABS: Device SIMPLE MASK
[2024-09-06 18:33] LABS: D Dimer 2.39 mg/L (0.19-0.50); Ethanol 239 mg/dL (<10); Lactic Acid Reflex 4.8 mmol/L (0.4-2.0)
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
[2024-09-06 18:47] LABS: Alanine Aminotransferase 41 U/L (6-35); Anion Gap 14 mmol/L (4-12); Aspartate Amino Transferase 81 U/L (14-36); Bilirubin,Total 0.5 mg/dL (0.2-1.3); Blood Urea Nitrogen 24 mg/dL (7-17); Calcium 8.4 mg/dL (8.4-10.2); Carbon Dioxide 20 mmol/L (22-30); Chloride 108 mmol/L (98-107); Estimated Glomerular Filt Rate 39; Glucose 232 mg/dL (65-110); Magnesium 1.7 mg/dL (1.6-2.3); Osmolality Calculated 305 mOsm/kg (285-295); Potassium 3.8 mmol/L (3.4-5.0); Sodium 142 mmol/L (137-145)
[2024-09-06 18:48] LABS: Total Protein 6.7 g/dL (6.3-8.2); Troponin I 0.039 ng/mL (0.000-0.034)
[2024-09-06 18:49] LABS: Albumin Level 4.2 g/dL (3.5-5.1); Alkaline Phosphatase 83 U/L (38-126)
[2024-09-06 18:51] LABS: NT Pro B Type Natriuretic Pept 1580 pg/mL (19.9-100)
--- NOTE | 2024-09-06 18:56 | PC.NURSE ---
call placed to granddaughter jing , informed of elevated troponin. placed phone on speaker. spoke with pt. explained both d-dimer and troponin abnormal level. encouraged pt to go to closest ER for further evaluation. pt stated ill see them next week. and hung up the phone
[2024-09-06 19:38] LABS: Influenza A QL RT-PCR Negative (Negative); Influenza B QL RT-PCR Negative (Negative); RSV RNA, RT-PCR Negative (Negative); SARS-CoV-2 RNA PCR Negative (Negative)
[2024-09-06 20:16] LABS: Reflex Lactic Acid Yes or No Add Lactic
== END 2024-09-06 18:30 | disposition left against medical advice (07) ==
LOC: CHSED 17:50
PROVIDERS: Emergency Provider Emergency Medicine; PCP Internal Medicine
DX: R06.00 Dyspnea, unspecified (principal); J44.9 Chronic obstructive pulmonary disease, unspecified; R79.1 Abnormal coagulation profile; R79.89 Other specified abnormal findings of blood chemistry; F17.210 Nicotine dependence, cigarettes, uncomplicated; Z20.822 Contact with and (suspected) exposure to COVID-19
CPT/HCPCS: 36415; 36600; 71046; 80053; 82077; 82375; 82805; 83050; 83605; 83735; 83880; 84484; 85018; 85025; 85380; 87637; 93005; 94640; 96374; 99284; J2919

== ENCOUNTER 2024-12-29 14:12 | Inpatient (IN) | payer MEDICARE, SELFPAY ==
[2024-12-29] VITALS (9 sets, daily range): BP systolic 96–120; BP diastolic 61–71; PULSE 85–101; RESP 18–22; TEMP 36.2–36.7; O2SAT 80–95; BMI 19.2
--- NOTE | ~2024-12-29 | US_ITS ---
EXAMINATION: US venous doppler [facility] DATE: 01/03/2025 07:36 INDICATION: Acute pulmonary emboli. TECHNIQUE: Grayscale ultrasound images without and with compression and Doppler ultrasound images of the bilateral lower extremity veins were obtained. COMPARISON: None. FINDINGS: The visualized portions of right common femoral vein, profunda (deep) femoral vein, femoral vein, popliteal vein, peroneal veins, posterior tibial veins, and greater saphenous vein outflow are patent. The visualized portions of left common femoral vein, profunda femoral vein, femoral vein, popliteal vein, peroneal veins, posterior tibial veins, and greater saphenous vein outflow are patent. IMPRESSION: 1. No deep venous thrombosis. Reviewed, dictated and finalized at location E.
--- NOTE | ~2024-12-29 | XR_ITS ---
EXAMINATION: XR chest 2V, 01/03/2025 18:00 CDT HISTORY: possible aspiration COMPARISON: No comparisons available. Technique: 2 views obtained. Findings: Small basilar infiltrates. COPD changes. No pneumothorax. Heart is normal size. Mediastinal and hilar contours are within normal limits. Bony thorax no acute abnormality. Impression: Bilateral pneumonia Reviewed, dictated and finalized at location P. Impression: Bilateral pneumonia
--- NOTE | ~2024-12-29 | CT_ITS ---
EXAMINATION: CT cervical spine wo con COMPARISON: None HISTORY: fall TECHNIQUE: Axial images were obtained through the spine without IV contrast. Coronal, sagittal reconstruction images were obtained from the axial views. CT scan performed using dose optimization techniques including the following automated exposure control; adjustment of mA and/or kV; use of iterative reconstruction technique. Automatic exposure control was used to reduce radiation dose. Permanent radiation dose record is archived to PACS. FINDINGS: Moderate loss of vertebral height throughout, no acute fracture or subluxation, there is posterior fixation noted of C3, C4 and C5. Severe loss of disc height throughout with multilevel moderate to severe canal and foraminal stenosis. Soft tissues unremarkable. Impression: No acute abnormality. Reviewed, dictated and finalized at location P. Impression: No acute abnormality.
--- NOTE | ~2024-12-29 | CT_ITS ---
EXAMINATION: CT brain wo margaret, 12/29/2024 15:30 CDT HISTORY: fall COMPARISON: No comparisons available. Technique: Axial images obtained of the brain without contrast. One or more of the following dose reduction techniques were used: automated exposure control, adjustment of the mA and/or kV according to patient size, use of iterative reconstruction technique. Findings: No acute infarct or parenchymal hemorrhage. No abnormal mass or mass effect. No midline shift. No extra-axial fluid collections. No hydrocephalus. Mastoid air cells unremarkable. Sinuses and orbits unremarkable. No acute fracture. No significant facial or scalp soft tissue swelling evident. No radiopaque foreign body is seen. Impression: 1.No acute intracranial abnormality. Reviewed, dictated and finalized at location P. Impression: 1.No acute intracranial abnormality.
--- NOTE | ~2024-12-29 | CT_ITS ---
EXAMINATION: CTA chest PE protocol DATE: 12/30/2024 12:38 INDICATION: Dyspnea TECHNIQUE: Computed tomography (CT) pulmonary angiogram of the chest was performed with 100 mL Omnipaque-350 intravenous contrast. Additional 3D reconstructions utilizing coronal maximum intensity projection (MIP) were performed. Automated exposure control and iterative reconstruction technique were employed. The dose-length product was 308.77 mGy-cm. COMPARISON: 02/12/2023 FINDINGS: Pulmonary arterial filling defect in a subsegmental pulmonary artery in the lateral basilar segment of the right lower lobe. No other lesions suspicious for pulmonary emboli. Unchanged linear discoid atelectasis/scarring in the right upper lobe extending peripherally to multilevel surgical clips along the posterior pleura. Calcified right upper lobe pulmonary nodule along with multiple small splenic calcifications consistent with old granulomatous disease. No pneumonia, pulmonary edema, pleural effusion or pneumothorax. Heart size is normal. No leftward bowing of the ventricular septum to suggest right heart strain. Small amount scattered atherosclerotic coronary artery calcific location. No pericardial effusion. Thoracic aorta is normal in caliber with no dissection. Chronic enlargement of the central pulmonary arteries consistent with pulmonary arterial hypertension. No pathologically enlarged thoracic lymphadenopathy. Chronic compression fractures at C7-T2 which are evident on prior CT and at T5 which can be seen on chest radiograph from 09/06/2024. Calcification associated with a healing likely subacute fractures of the sternum which also appear to been present since 09/06/24. IMPRESSION: 1. Single pulmonary embolism in a subsegmental pulmonary artery in the lateral basilar segment of the right lower lobe. No associated right heart strain. Reviewed, dictated and finalized at location A.
--- NOTE | 2024-12-29 14:40 | ECG_ITS ---
Test Date: 2024-12-29 14:59:24 Measurements Intervals [place] Rate: 100 P: 93 FL: 191 QRS: 95 QRSD: 88 T: 92 QT: 375 QTc: 485 Interpretive Statements SINUS TACHYCARDIA WITH OCCASIONAL SUPRAVENTRICULAR PREMATURE COMPLEXES RIGHT AXIS DEVIATION BORDERLINE ST-T WAVE ABNORMALITY- HIGH LATERAL LEADS BASELINE ARTIFACT- I, II, III, AVR, AVL, AVF, V1-V6 BORDERLINE ECG Compared to ECG 09/06/2024 18:06:49 NO SIGNIFICANT CHANGE Electronically Signed On 12-29-2024 15:14:45 CDT by Ha Zheng D.O.
--- NOTE | 2024-12-29 14:41 | ED_ITS ---
HPI - Weakness General Chief complaint: Weakness Stated complaint: ETOH Time Seen by Provider: 12/29/24 14:39 Source: patient Mode of arrival: ambulatory Limitations: clinical condition and intoxication (Alcohol) History of Present Illness HPI Narrative: Patient is a 69-year-old female with alcoholism and living in a bur down condemned house found by EMS today. She was intoxicated and brought to the ER for further evaluation and social issues. Patient has no major complaints at this time. Some weakness. Complaint: generalized weakness Onset (ago): day(s) (One) Duration: constant Location: generalized Migration: none Severity: mild Severity scale (1-10): 2 Quality: other (No pain) Relieving factors: none Exacerbating factors: other (Alcohol) Context: other (Patient presents alcohol intoxication however she claims no alcohol taken today; she has generalized weakness and living in a unacceptable living arrangement without running water or electricity in a condemned billing) Associated symptoms: denies other symptoms Related Data Allergies Allergy/AdvReac Type Severity Reaction Status Date / Time Penicillins Allergy Unknown Verified 06/14/22 21:06 Review of Systems 2 Review of Systems: All systems reviewed & are unremarkable except as noted in HPI and below Constitutional: Constitutional: Reports no additional constitutional complaints Eyes: Eyes: Reports no additional eye complaints ENT: Reports system reviewed and no additional complaints, except as documented Cardiovascular: Cardiovascular: Reports no additional cardiovascular complaints Respiratory: Respiratory: Reports no additional respiratory complaints Gastrointestinal: Gastrointestinal: Reports no additional gastrointestinal complaints Genitourinary: Genitourinary: Reports no additional female genitourinary complaints Musculoskeletal: Musculoskeletal: Reports no additional musculoskeletal complaints Integumentary/Breasts: Skin/Breast: Reports system reviewed and no additional complaints, except as docu Neurologic: Reports system reviewed and no additional complaints, except as documented Psychiatric: Psychiatric: Reports no additional psychiatric complaints Endocrine: Endocrine: Reports no additional endocrine complaints Hematologic/Lymphatic: Hematologic/Lymphatic: Reports no additional hematologic/lymphatic complaints Allergic/Immunologic: Allergic/Immunologic: Reports no additional allergic/immunologic complaints PMF Past Medical History Medical History Smoking Falls Social anxiety disorder Viral respiratory illness Acute kidney failure COVID-19 Family History Family History Mother Colon cancer Father Heart disease Sibling Diabetes mellitus Heart disease Sibling Heart disease Sibling Diabetes mellitus Heart disease Sibling Heart disease Social History Social History Smoking packs per day: 2 Smoking cigarettes per day: 40.0 Years smoked: 51 Smoking pack-years: 102.00 Smoking status: Current every day smoker Tobacco type: cigarettes Second hand tobacco smoke exposure: Yes (family members smoke in front of her) Additional smoking assessment comments: states recently slowed down as she felt ill Alcohol intake: current Substance use: never Substance use type: does not use Lack of Transportation: YES Lack of Food: Often True Current Housing: I Have Housing Concerned About Future Housing: No Difficulty Paying Gas/Electric Bills: No Difficulty Paying for Meds: No Currently Unemployed: No Education: Grade School Difficulty w/ Childcare or Family Care: No Spiritual care concerns: No Exam 2 Const: General: no acute distress Nutritional Appearance: thin O rientation/consciousness: confusion Limitations: other limitations (Acutely intoxicated and disheveled) HENMT: Head: normal to inspection Ears: external ears normal F jaime/Nose/Sinus: Normal external nose present Eyes: Conjunctivae: conjunctivae normal Pupils: Equal, round and reactive pupils present EOM: EOMs intact bilaterally Neck: Neck: normal visual inspection Chest: Chest palpation & inspection: normal inspection of the chest Resp: Effort & Inspection: normal respiratory effort and not labored A uscultation: clear to auscultation bilaterally and no crackles Cardio: Rate: regular rate Rhythm: regular rhythm Heart sounds: no murmurs GI: Inspection: non-distended GI Palp: Yes Soft to palpation and No Tenderness to palpation present (GI) Auscultation: normal bowel sounds : General: Yes bladder normal to palpation Back/Spine/Pelvis: Back: no CVA tenderness Skin: General skin exam: normal color Rashes: no rashes Wounds: no wounds Neuro: General: No patient oriented x3, moves all extremities, no meningeal signs, no focal motor deficits and CN's II-XI intact bilaterally Other: AAO x1, Fast exam negative, NIH is 0, GCS is 15 Extrem: General: normal to inspection Psych: Mental Status: mental status grossly abnormal Affect: Anxious affect present Attitude: cooperative Other: Acute alcohol intoxication Course Vital Signs Vital signs: Vital Signs Pulse Oximetry 80 L 12/29/24 16:28 Oxygen Delivery Room Air 12/29/24 16:28 Temperature 37.1 C 12/30/24 00:00 Pulse Rate 93 12/30/24 00:00 Respiratory Rate 18 12/30/24 00:00 Blood Pressure 154/80 H 12/30/24 00:00 Pulse Oximetry 94 12/30/24 00:00 Oxygen Delivery Nasal Cannula 12/30/24 00:00 Oxygen Flow Rate 2 12/30/24 00:00 MDM - Weakness MDM Narrative Medical decision making narrative: Patient is a 69-year-old female with alcoholism here for weakness and social issues. Workup to include labs and CT scan of the head and neck. Admit patient for further monitoring of alcoholism as well as health and social care teacher to review home environment and housing options. Lab Data Attestation: I reviewed the patient's lab results. 12/29/24 14:49 12/29/24 14:49 Labs: Lab Results 12/29/24 Range/Units 14:49 WBC 4.3 L (4.8-10.8) K/mm3 RBC 4.19 L (4.20-5.40) M/mm3 Hgb 13.5 (11.7-13.8) g/dL Hct 40.4 (35.0-42.0) % MCV 96.4 (78.0-102.0) fL MCH 32.2 H (27.0-31.0) pg MCHC 33.4 (32-36) g/dL RDW 15.8 H (11.6-14.4) % Plt Count 141 L (150-420) K/mm3 MPV 10.5 (9.2-11.8) fl Immature Gran % (Auto) 0.5 H (0.0-0.0) % Neut % (Auto) 54.7 (50.0-70.0) % Lymph % (Auto) 31.3 (18.0-42.0) % Rock % (Auto) 11.6 H (2.0-11.0) % Eos % (Auto) 0.7 L (1.0-6.0) % Baso % (Auto) 1.2 H (0.0-1.0) % Lymph # (Auto) 1.35 (1.10-4.50) K/mm3 Rock # (Auto) 0.50 (0.10-0.90) K/mm3 Eos # (Auto) 0.03 (0.02-0.50) K/mm3 Baso # (Auto) 0.05 (0.00-0.10) K/mm3 Abs Immat Gran (auto) 0.02 H (0.00-0.00) K/mm3 Absolute Neuts (auto) 2.36 (1.70-7.20) K/mm3 Absolute Nucleated RBC 0.00 (0.00-0.00) K/mm3 Nucleated RBC % 0.0 (0-0.0) % % Immature Plt Fraction 4.6 (1.0-7.0) % Sodium 142 (137-145) mmol/L Potassium 3.2 L (3.4-5.0) mmol/L Chloride 98 (98-107) mmol/L Carbon Dioxide 31 H (22-30) mmol/L Anion Gap 13 H (4-12) mmol/L BUN 15 D (7-17) mg/dL Creatinine 1.71 H (0.7-1.0) mg/dL Estim Creat Clear Calc Not Reportable Estimated GFR 30 L (59 - ) Glucose 101 (65-110) mg/dL Calculated Osmolality 294 (285-295) mOsm/kg Lactic Acid 2.9 H (0.4-2.0) mmol/L Calcium 8.8 (8.4-10.2) mg/dL Total Bilirubin 0.6 (0.2-1.3) mg/dL AST 77 H (14-36) U/L ALT 41 H (6-35) U/L Alkaline Phosphatase 74 (38-126) U/L Troponin I 0.027 (0.000-0.034) ng/mL Total Protein 6.8 (6.3-8.2) g/dL Albumin 4.1 (3.5-5.1) g/dL Ethyl Alcohol > 300 H* (<10) mg/dL Imaging Data Attestation: I personally reviewed and interpreted this imaging study as follows: Radiologist's impression: CT scan of the head is negative for acute process CT scan of the cervical spine is negative for acute process ECG Data EKG #1: Attestation: I personally reviewed and interpreted this ECG as follows: ECG completion date: 10/02/25 ECG completion time: 01:10 EKG Interpretation: tachycardia, sinus rhythm, PACs, non-specific ST changes, normal QRS, normal QT and right axis Discharge Plan Discharge Clinical Impression: Alcohol intoxication, ACACIA (acute kidney injury), Acute dehydration Patient Disposition: Acute Care Hospital [facility] Condition: Stable
[2024-12-29] MEDS: SODIUM CHLORIDE 0.9% IV 1,000 ML 999 ML IV CONT (14:54)
[2024-12-29 14:59] LABS: Hematocrit 40.4 % (35.0-42.0); Hemoglobin 13.5 g/dL (11.7-13.8); Immature Granulocyte Percent A 0.5 % (0.0-0.0); Immature Platelet Fraction Pct 4.6 % (1.0-7.0); Lymphocytes Absolute Auto 1.35 K/mm3 (1.10-4.50); Mean Corpuscular HGB Conc 33.4 g/dL (32-36); Mean Corpuscular Hemoglobin 32.2 pg (27.0-31.0); Mean Corpuscular Volume 96.4 fL (78.0-102.0); Nucleated Red Blood Cells Absolute Auto 0.00 K/mm3 (0.00-0.00); Nucleated Red Blood Cells Perc 0.0 % (0-0.0); Platelet Count Result 141 K/mm3 (150-420); Red Blood Count 4.19 M/mm3 (4.20-5.40); White Blood Count 4.3 K/mm3 (4.8-10.8)
[2024-12-29 15:09] LABS: Alanine Aminotransferase 41 U/L (6-35); Albumin Level 4.1 g/dL (3.5-5.1); Alkaline Phosphatase 74 U/L (38-126); Anion Gap 13 mmol/L (4-12); Aspartate Amino Transferase 77 U/L (14-36); Bilirubin,Total 0.6 mg/dL (0.2-1.3); Blood Urea Nitrogen 15 mg/dL (7-17); Calcium 8.8 mg/dL (8.4-10.2); Carbon Dioxide 31 mmol/L (22-30); Chloride 98 mmol/L (98-107); Estimated Glomerular Filt Rate 30; Glucose 101 mg/dL (65-110); Osmolality Calculated 294 mOsm/kg (285-295); Potassium 3.2 mmol/L (3.4-5.0); Sodium 142 mmol/L (137-145); Total Protein 6.8 g/dL (6.3-8.2)
--- OUTSIDE RECORDS SUMMARY | 2024-12-29 15:16 | XMS_ITS | Encounter Summary ---
Author Organization [facility] - [facility] Address [facility] [place] [address] Care Team Providers Care Dye Feeder Name Role Phone Candida Kapoor MD Primary Care Provider [phone]- [phone] Encounter Details Date Type Department Care Team (Late st Contact Info) Description 06/14/2017 Abstract [facility] CONVERSION [address] [place] [address] , Generic Conversion, Social History Tobacco Use Types Packs/Day Years Used Date Smoking Tobacco: Never Assessed Comments Unknown Sex and Gender Information Value Date Recorded Sex Assigned at Female 05/24/2024 2:50 PM POLYMER SCIENTIST Legal Sex Female 8:54 PM CDT Gender Identity Not on file Sexual Orientation Not on file documented as of this encounter Plan of Treatment Not on file documented as of this encounter Visit Diagnoses Not on filedocumented in this encounter Additional Health Concerns Infection Onset Date Last Indicated Resolved Time MRSA 02/16/2017 02/16/2017 documented as of this encounter Care Teams Dye Feeder Relationship Specialty [place] [address] [place] [address] PCP - General INTERNAL MEDICINE 02/12/19 documented as of this encounter
--- OUTSIDE RECORDS SUMMARY | 2024-12-29 15:16 | XMS_ITS | Clinical Summary ---
Author Organization [facility] Address [address] [place] [address] Care Team Providers Care Boxing Promoter Name Role Phone Candida Kapoor MD Primary Care Provider +1- [phone] Allergies Active Allergy Reactions Criticality Noted Date Comments Amoxicillin Swelling 10/11/2020 Penicillins Swelling 10/06/2014 Medications gabapentin 300 MG capsule Take 1 capsule (300 mg total) by mouth 4 (four) times daily. Active albuterol sulfate HFA 108 (90 Base) MCG/ACT inhaler Inhale 1 puff into the lungs daily. 1 Active ipratropium-alb uterol 0.5-2.5 (3) MG/3ML Solution Take 3 mLs by nebulization daily. 1 Active mirtazapine 15 MG tablet Take 1 tablet (15 mg total) by mouth daily. 1 Active nystatin (MYCOSTATIN) cream Apply topically 2 (two) times daily. 5 g 5 Active zinc oxide (DESITIN) 20 % ointment Apply topically as needed. 5 g 5 Active Active Problems Problem Noted Date Diagnosed Date Decubitus skin ulcer 09/28/2024 UTI (urinary tract infection) 09/28/2024 Weakness 09/28/2024 Closed fracture of distal en d of left ulna, unspecified fracture morphology, initial encounter 11/30/2020 Encounters Date Type Department Care Team Description 09/27/2024 7:17 PM CDT - 09/30/2024 6:06 PM CDT Hospital Encounter [facility] [address] [place] [address] Fazal Peng DO Ishmael, Timothy L, MD Nowlan, Meagan E, MD Shortness Of Breath Discharge Disposition: Jail Facility from Last 3 Months Immunizations Immunization Administration Dates Next Due Tdap (Boostrix) 02/12/2019 Family History Medical History Relation Comments No Known Problems Brother 1 Heart Attack Brother 2 Heart Attack Brother 3 Heart Attack Father Stroke Father Cancer Mother Hypertension Mother No Known Problems Sister 1 Cancer Sister 2 Relation Status Comments Brother 1 Alive Brother 2 Brother 3 Father Mother Sister 1 Alive Sister 2 Social History Tobacco Use Types Packs/Day Years Used Date Smoking Tobacco: Every Day Cigarettes Smokeless Tobacco: Never Alcohol Use Standard Drinks/Week Comments Yes 3.3 (1 standard drink = 0.6 oz p ure alcohol) daily [facility] Utilities Answer Date Recorded In the past 12 months has [facility] [employer], gas, oil, or water [employer] threatened to shut off services in your home? Patient unable to answer 09/28/2024 Humiliation, Afraid, Rape, and Kick questionnair e Answer Date Recorded Within the last year, have y ou been afraid of your partner or ex-partner? No 09/28/2024 Within the last year, have y ou been humiliated or emotionally abused in other ways by your partner or ex-partner? No Within the last year, have y ou been kicked, hit, slapped, or otherwise physically hurt by your partner or ex-partner? No 09/28/2024 Within the last year, have y ou been raped or forced to have any kind of sexual activity by your partner or ex-partner? No 09/28/2024 Overall Financial Resource Strain (CARDIA) Answe r Date Recorded How hard is it for you to pa y for the very basics like food, housing, medical care, and heating? Somewhat hard 09/28/2024 Hunger Vital Sign Answer Date Recorded Within the past 12 months, y ou worried that your food would run out before you got the money to buy more. Often true 09/29/19 25 Within the past 12 months, t he food you bought just didn't last and you didn't have money to get more. Often true 09/28/2024 PRAPARE - Transportation Answer Date Re corded In the past 12 months, has l ack of transportation kept you from medical appointments or from getting medications? Yes 03/2024 In the past 12 months, has l ack of transportation kept you from meetings, work, or from getting things needed for daily living? Yes 09/28/2024 Housing Stability Vital Sign Answer Mynor e Recorded In the last 12 months, was t here a time when you were not able to pay the mortgage or rent on time? No 09/28/2024 In the past 12 months, how m any times have you moved where you were living? 0 09/28/2024 At any time in the past 12 m [facility], were you homeless or living in a skilled nursing (including now)? No 09/28/2024 Comments No Sex and Gender Information Value Date Recorded Sex Assigned at Female 05/24/2024 2:50 PM DIESEL LOCOMOTIVE FIRER Legal Sex Female 8:54 PM CDT Gender Identity Not on file Sexual Orientation Not on file Last Filed Vital Signs Vital Sign Reading Time Taken Comments Blood Pressure 150/71 09/30/2024 12:25 PM CDT Pulse 92 09/30/2024 12:25 PM CDT Temperature 36.8 C (98.2 F) 09/30/2024 12:25 PM CDT Respiratory Rate 20 09/30/2024 12:25 PM CDT Oxygen Saturation 99% 09/30/2024 12:25 PM CDT Inhaled Oxygen Concentration - - Weight 52.8 kg (116 lb 6.4 oz) 09/28/2024 1:10 A M CDT Height 165.1 cm (5' 5) 09/28/2024 1:02 AM CDT Body Mass Index 19.37 09/28/2024 1:02 AM CDT Plan of Treatment Health Maintenance Due Date Last Done Comments Colorectal Cancer Screening Colonoscopy (10 Years) 1957 Hepatitis C 1975 Mammogram Screening 1997 Zoster Vaccines (1 of 2) 2007 Pneumococcal Vaccine: 50+ Ye ars (2 of 2 - PCV) 06/13/2013 06/13/2012 Annual Medicare Wellness Visit 2022 Dexa Scan (General) 2022 COVID-19 Vaccine (1 - 2023-2 5 season) 2024 DTaP, Tdap and Td Vaccines ( 2 - Td or Tdap) 02/12/2029 02/12/2019 RSV Immunization or 60+ Years (1 - 1-dose 75+ series) 2032 Meningococcal B Vaccine Aged Out No l onger eligible based on patient's age to complete this topic Meningococcal Vaccine Aged Out No no bob eligible based on patient's age to complete this topic RSV Immunizations Under 20 Months Aged Out No longer eligible based on patient's age to complete this topic Procedures Procedure Name Priority Date/Time Associated Diagnosis Comments FOLIC ACID SERUM Routine 09/30/2024 5:13 AM CDT VITAMIN B-12 Routine 09/30/2024 5:13 AM CDT COMPREHENSIVE METABOLIC PANEL Routine 09/30/2024 5:13 AM CDT CBC W/DIFF AUTOMATED Routine 09/30/2024 5:13 AM CDT from Last 3 Months Results * VITAMIN B-12 (09/30/2024 5:13 AM CDT) VITAMIN B12 S/P/B 627 193 - 986 PG/ML 09/30/2024 1:38 PM CDT [facility] 09/30/2024 5:13 AM CDT Maria Guadalupe Palmer MD LABORATORY Final Result [facility] [address] [place] [address], [id number] * (ABNORMAL) COMPREHENSIVE METABOLIC PANEL (09/30/2024 5:13 AM CDT) SODIUM S/P/B 141 136 - 145 MMOL/L 09/30/2024 5:57 AM CDT [facility] POTASSIUM S/P/B 4.2 3.5 - 5.1 MMOL/L 09/30/2024 5:57 AM T [facility] CHLORIDE S/P/B 105 98 - 107 MMOL/L 09/30/2024 5:57 AM T [facility] CO2 29.9 21.0 - 32.0 MMOL/L 09/30/2024 5:57 AM T [facility] GLUCOSE 110(H) 70 - 99 MG/DL 09/30/2024 5:57 AM T [facility] Comment: FASTING GLUCOSE 100 TO 125 MG/DL IS CONSISTENT WITH IMPAIRED FASTING GLUCOSE. FASTING GLUCOSE >125 MG/DL IS CONSISTENT WITH DIABETES. RANDOM GLUCOSE >200 MG/DL WITH HYPERGLYCEMIC SYMPTOMS IS CONSISTENT WITH DIABETES. PER ADA GUIDELINES BUN 16 6 - 24 MG/DL 09/30/2024 5:57 AM T [facility] CREATININE S/P/B 0.91 0.55 - 1.02 MG/DL 09/30/2024 5:57 AM T [facility] CALCIUM S/P/B 8.7 8.4 - 10.5 MG/DL 09/30/2024 5:57 AM T [facility] BILIRUBIN TOTAL S/P/B 0.3 0.2 - 1.0 MG/DL 09/30/2024 5:57 AM [facility] Comment: THIS ASSAY IS NOT RECOMMENDED FOR PATIENTS UNDERGOING TREATMENT WITH ELTROMBOPAG DUE TO THE POTENTIAL FOR FALSELY ELEVATED RESULTS. ALKALINE PHOSPHATASE S/P/B 131 55 - 142 U/L 09/30/2024 5:57 AM T [facility] AST 66(H) 15 - 37 U/L 09/30/2024 5:57 AM [facility] ALT 58 14 - 59 U/L 09/30/2024 5:57 AM T [facility] TOTAL PROTEIN S/P/B 5.6(L) 6.4 - 8.2 G/DL 09/30/2024 5:57 AM T [facility] ALBUMIN S/P/B 2.4(L) 3.4 - 5.0 G/DL 09/30/2024 5:57 AM T [facility] ANION GAP 6.1 5.0 - 15.0 MMOL/L 09/30/2024 5:57 AM CDT [facility] OSMOLALITY (CALC) 294 MOSM/KG 025 5:57 AM CDT [facility] Comment:REFERENCE RANGE NOT ESTABLISHED GFR ESTIMATE 69(L) >89 ML/MIN/1. 73 M2 09/30/2024 5:57 AM CDT [facility] GFR NOTES GFR REFERENCE S: 09/30/2024 5:57 AM CDT [facility] Comment: THE ESTIMATED GFR IS CALCULATED USING THE 2020 CKD-EPI EQUATION. THE FOLLOWING CATEGORIES FOR GRADING RENAL FUNCTION ARE RECOMMENDED BY THE INTERNATIONAL SOCIETY OF NEPHROLOGY (KDIGO 2012 CLINICAL PRACTICE GUIDELINE). G1,NORMAL OR HIGH: >89 ml/min/1.73 m2 G2,MILDLY DECREASED: 60-89 ml/min/1.73 m2 G3A,MILDLY TO MODERATELY DECREASED: 45-59 ml/min/1.73 m2 G3B,MODERATELY TO SEVERELY DECREASED: 30-44 ml/min/1.73 m2 G4,SEVERELY DECREASED: 15-29 ml/min/1.73 m2 G5,KIDNEY FAILURE: <15 ml/min/1.73 m2 09/30/2024 5:13 AM CDT us Maria Guadalupe Palmer MD LABORATORY Final Result Performing Organization Address City/[facility]/ZIP Co de Phone Number [facility] [address] [place] [address], * FOLIC ACID SERUM (09/30/2024 5:13 AM CDT) FOLATE 6.6 3.1 - 17.5 NG/ML 09/30/2024 1:38 PM CDT [facility] 09/30/2024 5:13 AM CDT us Maria Guadalupe Palmer MD LABORATORY Final Result [facility] [address] [place] [address], [place] [phone] [id number] * (ABNORMAL) CBC W/DIFF AUTOMATED (09/30/2024 5:13 AM CDT) WBC 2.80(L) 4.00 - 10.80 x10'3/uL 09/30/2024 5:45 AM CDT [facility] RBC 3.05(L) 4.10 - 5.40 x10'6/uL 09/30/2024 5:45 AM CDT [facility] HGB 10.6(L) 12.0 - 16.0 G/DL 09/30/2024 5:45 AM CDT [facility] HCT 32.2(L) 36.0 - 47.0 % 09/30/2024 5:45 AM CDT [facility] MCV 105.6(H) 78.0 - 100.0 FL 09/30/2024 5:45 AM CDT [facility] MCH 34.8(H) 27.0 - 31.0 PG 09/30/2024 5:45 AM CDT [facility] MCHC 32.9(L) 33.0 - 36.0 G/DL 09/30/2024 5:45 AM CDT [facility] RDW 15.0(H) 11.5 - 14.5 % 09/30/2024 5:45 AM CDT [facility] PLT 150 150 - 350 x10'3/uL 09/30/2024 5:45 AM CDT [facility] MPV 10.5(H) 7.4 - 10.4 FL 09/30/2024 5:45 AM CDT [facility] CBC COMMENT NORMAL REFERENCE RANGE NOT ESTABLISHED FOR THE PROPORTIONAL LEUKOCYTE DIFFERENTIAL. 09/30/2024 5:45 AM CDT [facility] NEUTROPHILS % 52.4 % 09/30/2024 5:45 AM CDT [facility] LYMPHOCYTES % 30.4 % 09/30/2024 5:45 AM CDT [facility] MONOCYTES % 12.5 % 09/30/2024 5:45 AM CDT [facility] EOSINOPHILS % 2.9 % 09/30/2024 5:45 AM CDT [facility] BASOPHILS % 1.8 % 09/30/2024 5:45 AM CDT [facility] IMMATURE GRANS % 0.0 % 10/01/19 5:45 AM CDT [facility] NRBC % 0.0 % 09/30/2024 5:45 AM CDT [facility] ABS. NEUTROPHILS 1.47(L) 1.60 - 8.30 x10'3/uL 09/30/2024 5:45 AM CDT [facility] ABS. LYMPHOCYTES 0.85 0.80 - 4.70 x10'3/uL 09/30/2024 5:45 AM CDT [facility] ABS. MONOCYTES 0.35 0.00 - 1.50 x10'3/uL 09/30/2024 5:45 AM CDT [facility] ABS. EOSINOPHILS 0.08 0.00 - 0.40 x10'3/uL 09/30/2024 5:45 AM CDT [facility] ABS. BASOPHILS 0.05 0.00 - 0.20 x10'3/uL 09/30/2024 5:45 AM CDT [facility] ABS. IMMATURE GRANULOCYTES 0.00 0.00 - 0.03 x10'3/uL 09/30/2024 5:45 AM CDT [facility] ABS. NUCLEATED RBC'S 0.00 0.00 - 0.01 x10'3/uL 09/30/2024 5:45 AM CDT [facility] 09/30/2024 5:13 AM CDT Maria Guadalupe Palmer MD LABORATORY Final Result [facility] [address] [place] [address], from Last 3 Months Additional Health Concerns Infection Onset Date Last Indicated MRSA 02/16/2017 02/16/2017 Insurance [facility] Advance Directives * Full Code (Latest Code Status on File) Date Activated Date Inactivated Comments 09/28/2024 12:29 AM 09/30/2024 8:11 PM Care Teams Boxing Promoter Relationship Specialty [place] [address] [place] [address] PCP - General INTERNAL MEDICINE 02/12/19
--- OUTSIDE RECORDS SUMMARY | 2024-12-29 15:16 | XMS_ITS | Encounter Summary ---
Author Organization [facility] Address [facility] [place] [address] Care Team Providers Care Knot Tier Name Role Phone Candida Kapoor MD Primary Care Provider +1- [phone] Encounter Details Date Type Department Care Team (Late st Contact Info) Description 09/05/2018 Abstract [facility] CONVERSION [address] [place] [address] , Generic Conversion, Social History Tobacco Use Types Packs/Day Years Used Date Smoking Tobacco: Never Assessed Comments Unknown Sex and Gender Information Value Date Recorded Sex Assigned at Female 05/24/2024 2:50 PM HUMAN RESOURCES ADMINISTRATOR Legal Sex Female 8:54 PM CDT Gender Identity Not on file Sexual Orientation Not on file documented as of this encounter Plan of Treatment Not on file documented as of this encounter Visit Diagnoses Not on filedocumented in this encounter Additional Health Concerns Infection Onset Date Last Indicated Resolved Time MRSA 02/16/2017 02/16/2017 documented as of this encounter Care Teams Knot Tier Relationship Specialty Start [place] [address] [place] [address] PCP - General INTERNAL MEDICINE 02/12/19 documented as of this encounter
[2024-12-29 15:29] LABS: Troponin I 0.027 ng/mL (0.000-0.034)
--- NOTE | 2024-12-29 15:30 | PC.NURSE ---
Lab calls with critical ETOH: >300. ERP made aware.
--- NOTE | 2024-12-29 16:48 | PC.NURSE ---
oracle data warehouse developer called for bed placement. Pt will go to bed 206
[2024-12-29] MEDS: THIAMINE HCL 200 MG/2 ML VIAL 100 MG IV PUSH (16:56)
--- OUTSIDE RECORDS SUMMARY | 2024-12-29 17:00 | XMS_ITS | Encounter Summary ---
Author Organization [facility] Address [facility] [place] [address] Care Team Providers Care Restaurant Shift Leader Name Role Phone Candida Kapoor MD Primary Care Provider +1- [phone] Encounter Details Date Type Department Care Team (Late st Contact Info) Description 09/05/2018 Abstract [facility] CONVERSION [address] [address] , Generic Conversion, Social History Tobacco Use Types Packs/Day Years Used Date Smoking Tobacco: Never Assessed Comments Unknown Sex and Gender Information Value Date Recorded Sex Assigned at Female 05/24/2024 2:50 PM REFRIGERATOR ASSEMBLER Legal Sex Female 8:54 PM CDT Gender Identity Not on file Sexual Orientation Not on file documented as of this encounter Plan of Treatment Not on file documented as of this encounter Visit Diagnoses Not on filedocumented in this encounter Additional Health Concerns Infection Onset Date Last Indicated Resolved Time MRSA 02/16/2017 02/16/2017 documented as of this encounter Care Teams Restaurant Shift Leader Relationship Specialty [place] [address] [place] [address] PCP - General INTERNAL MEDICINE 02/12/19 documented as of this encounter
--- OUTSIDE RECORDS SUMMARY | 2024-12-29 17:00 | XMS_ITS | Encounter Summary ---
Author Organization [facility] Address [facility] [place] [address] Care Team Providers Care Funeral Home Assistant Name Role Phone Cadnida Kapoor MD Primary Care Provider [phone]- [phone] Encounter Details Date Type Department Care Team (Late st Contact Info) Description 06/14/2017 Abstract [facility] CONVERSION [address] [place] [address] , Generic Conversion, Social History Tobacco Use Types Packs/Day Years Used Date Smoking Tobacco: Never Assessed Comments Unknown Sex and Gender Information Value Date Recorded Sex Assigned at Female 05/24/2024 2:50 PM MICROBIOLOGY SOIL SCIENTIST Legal Sex Female 8:54 PM CDT Gender Identity Not on file Sexual Orientation Not on file documented as of this encounter Plan of Treatment Not on file documented as of this encounter Visit Diagnoses Not on filedocumented in this encounter Additional Health Concerns Infection Onset Date Last Indicated Resolved Time MRSA 02/16/2017 02/16/2017 documented as of this encounter Care Teams Funeral Home Assistant Relationship Specialty [place] [address] [place] [address] PCP - General INTERNAL MEDICINE 02/12/19 documented as of this encounter
[2024-12-29] MEDS: KCL 20 MEQ/SW 100 ML 100 ML 50 MEQ IVPB (17:16)
--- NOTE | 2024-12-29 17:40 | ADMGEN ---
This patient, Shaylee Saxena, was admitted to 2nd Floor Room 206-1. Patient/family oriented to hospital policies and general routines including ID bracelet, bed and alarms, visiting hours, pain management, procedures, bathroom and other care routines, personal items, smoking policy, room service/diet, and visiting hours. Information on how to activate the Rapid Response Team has been discussed. Patient/Family are encouraged to report perceived risks to care and to ask questions if they do not understand what they are told or what they should do.
--- NOTE | 2024-12-29 17:53 | PC.NURSE ---
Pt belongings and chart transported to pt room 206
--- NOTE | 2024-12-29 18:27 | PC.NURSE ---
Refuses oxygen, advised oxygen level low, refuses to wear. telemetry on sinus tach noted, harsh cough noted, states every day smoker, drinks occassionally, only beer, smells of ETOH
[2024-12-29 19:18] LABS: Add Urine Microscopic? YES; Glucose Urine UA Negative (Negative); Leukocyte Esterase Ur Negative LEU/UL (Negative); Nitrate Urine Negative (Negative); Specific Grav Ur 1.010 (1.010-1.020)
[2024-12-29 19:26] LABS: Appearance Urine Sl Cloudy (Clear)
[2024-12-29 19:53] LABS: Cannabinoid Screen Urine Negative (Negative)
[2024-12-29] MEDS: SODIUM CHLORIDE 0.9% IV 1,000 ML 200 ML IV CONT (20:24)
[2024-12-29] MEDS: DEXTROSE 5%/0.45% SOD CHL 1,000 ML 100 ML IV CONT (20:40)
[2024-12-29] MEDS: ONDANSETRON INJ 4 MG/2 ML VIAL IV PUSH (20:43)
--- NOTE | 2024-12-29 22:00 | PC.NURSE ---
Patient noted to be very unkempt. Hands and feet visibly dirty. Uncooperative. Will not allow nurses to do any part of assessment. When patient assisted to bedside commode she was very unsteady, would not wait for gait belt to be put on. Patient's shorts noted to have large smears of BM in them. Patient refused to take them off, refused offer of depend and gown. Would only wear her own clothing. Patient's SpO2 at 87% on room air with 2000 vitals check. Patient complains of not being able to breathe but will not leave her oxygen cannula in place, saying she can't breathe with it 0n. SpO2 raised to 95% when patient will wear cannula. Call light in reach.
[2024-12-30] VITALS (7 sets, daily range): BP systolic 140–155; BP diastolic 74–80; PULSE 57–93; RESP 18–32; TEMP 36.7–37.1; O2SAT 89–100
--- NOTE | 2024-12-30 | CONSULT_PTH ---
PATIENT: Shaylee Saxena LOC: [facility] U#:[id number] AGE/SX: 69/F ROOM: [facility] RE12/30/[address]: Soren Porter MD : [id number] BED: 1 DIS: 01/07/2025 SPEC #: [id number] RECD: 12/30/24 07:01 STATUS: CESAR MOFFETT #: [id number] CARIDAD: 12/30/24 00:[address]: Moe Porter DEPT: [facility] Consult RECD BY: Faith Negron MLT, ([facility]) Tissues: A - Peripheral Smear Procedures: Hematology Consult
[2024-12-30] MEDS: ACETAMINOPHEN 325 MG TABLET 650 MG PO ×2 (00:22→20:37)
[2024-12-30 05:36] LABS: Hematocrit 38.1 % (35.0-42.0); Hemoglobin 12.2 g/dL (11.7-13.8); Mean Corpuscular HGB Conc 32.0 g/dL (32-36); Mean Corpuscular Hemoglobin 31.7 pg (27.0-31.0); Mean Corpuscular Volume 99.0 fL (78.0-102.0); Platelet Count Result 100 K/mm3 (150-420); Red Blood Count 3.85 M/mm3 (4.20-5.40); White Blood Count 2.7 K/mm3 (4.8-10.8)
[2024-12-30 05:48] LABS: Alanine Aminotransferase 37 U/L (6-35); Albumin Level 3.6 g/dL (3.5-5.1); Alkaline Phosphatase 72 U/L (38-126); Anion Gap 6 mmol/L (4-12); Aspartate Amino Transferase 70 U/L (14-36); Bilirubin,Total 1.0 mg/dL (0.2-1.3); Blood Urea Nitrogen 11 mg/dL (7-17); Calcium 8.2 mg/dL (8.4-10.2); Carbon Dioxide 29 mmol/L (22-30); Chloride 103 mmol/L (98-107); Estimated CRCL calculation 35 ml/min; Estimated Glomerular Filt Rate 48; Glucose 129 mg/dL (65-110); Osmolality Calculated 287 mOsm/kg (285-295); Potassium 4.1 mmol/L (3.4-5.0); Sodium 138 mmol/L (137-145); Total Protein 5.6 g/dL (6.3-8.2)
[2024-12-30] MEDS: DEXTROSE 5%/0.45% SOD CHL 1,000 ML 100 ML IV CONT ×2 (06:09→16:49)
[2024-12-30] MEDS: ONDANSETRON INJ 4 MG/2 ML VIAL IV PUSH (06:10)
[2024-12-30 06:20] LABS: Band Neutrophils Percent 0 % (0-6); Basophils Absolute Manual 0.05 K/mm3 (0-0.1); Basophils Percent Manual 2 % (0-1); Eosinophils Absolute Manual 0.02 K/mm3 (0.02-0.50); Eosinophils Percent Manual 1 % (1-6); Lymphocytes Absolute Manual 1.18 K/mm3 (1.1-4.5); Lymphocytes Percent Manual 44 % (18-44); Monocytes Absolute Manual 0.21 K/mm3 (0.1-0.90); Monocytes Percent Manual 8 % (3-9); Neutrophils Absolute Manual 1.21 K/mm3 (1.3-6.7); Neutrophils Percent Manual 45 % (46-73); Total Cells Counted 100
[2024-12-30] MEDS: FOLIC ACID 1 MG TABLET PO (08:14)
[2024-12-30] MEDS: THIAMINE HCL 100 MG TABLET PO (08:14)
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
[2024-12-30] MEDS: chlordiazePOXIDE (*CRX) 25 MG CAPSULE PO ×2 (13:35→20:36)
--- NOTE | 2024-12-30 14:17 | PC.NURSE ---
Patient scored 13 on CIWA assessment. Lead Quality Technician administered Librium and patient appears to be feeling better. Noticeable tremors have subsided and patient is calmer.
[2024-12-30] MEDS: NICOTINE (*PBKC) 21 MG PATCH 1 PATCH TRANSDERM (15:23)
[2024-12-30] MEDS: IPRATROPIUM 0.5 MG/ALBUTEROL SULFATE 2.5 MG (BASE) AMPUL.NEB 3 ML INHALATION (17:18)
[2024-12-30] MEDS: CIPROFLOXACIN HC OTIC 10 ML 4 DROP EACH EAR (20:37)
[2024-12-30] MEDS: APIXABAN 2.5 MG TABLET 10 MG PO (20:37)
[2024-12-31] VITALS (13 sets, daily range): BP systolic 123–163; BP diastolic 71–97; PULSE 77–101; RESP 16–28; TEMP 36.4–37.2; O2SAT 93–100
[2024-12-31] MEDS: IPRATROPIUM 0.5 MG/ALBUTEROL SULFATE 2.5 MG (BASE) AMPUL.NEB 3 ML INHALATION ×4 (00:09→17:11)
[2024-12-31] MEDS: DEXTROSE 5%/0.45% SOD CHL 1,000 ML 100 ML IV CONT (02:40)
[2024-12-31 05:30] LABS: Hematocrit 35.0 % (35.0-42.0); Hemoglobin 10.9 g/dL (11.7-13.8); Immature Platelet Fraction Pct 5.0 % (1.0-7.0); Mean Corpuscular HGB Conc 31.1 g/dL (32-36); Mean Corpuscular Hemoglobin 31.9 pg (27.0-31.0); Mean Corpuscular Volume 102.3 fL (78.0-102.0); Platelet Count Result 85 K/mm3 (150-420); Red Blood Count 3.42 M/mm3 (4.20-5.40); White Blood Count 2.4 K/mm3 (4.8-10.8)
[2024-12-31 05:42] LABS: Alanine Aminotransferase 33 U/L (6-35); Albumin Level 3.1 g/dL (3.5-5.1); Alkaline Phosphatase 64 U/L (38-126); Anion Gap 6 mmol/L (4-12); Aspartate Amino Transferase 58 U/L (14-36); Bilirubin,Total 0.5 mg/dL (0.2-1.3); Blood Urea Nitrogen 15 mg/dL (7-17); Calcium 8.1 mg/dL (8.4-10.2); Carbon Dioxide 31 mmol/L (22-30); Chloride 104 mmol/L (98-107); Estimated CRCL calculation 36 ml/min; Estimated Glomerular Filt Rate 50; Glucose 120 mg/dL (65-110); Osmolality Calculated 293 mOsm/kg (285-295); Potassium 3.2 mmol/L (3.4-5.0); Sodium 141 mmol/L (137-145); Total Protein 5.2 g/dL (6.3-8.2)
[2024-12-31 05:52] LABS: Band Neutrophils Percent 0 % (0-6); Basophils Absolute Manual 0.00 K/mm3 (0-0.1); Basophils Percent Manual 0 % (0-1); Eosinophils Absolute Manual 0.04 K/mm3 (0.02-0.50); Eosinophils Percent Manual 2 % (1-6); Lymphocytes Absolute Manual 0.81 K/mm3 (1.1-4.5); Lymphocytes Percent Manual 34 % (18-44); Monocytes Absolute Manual 0.19 K/mm3 (0.1-0.90); Monocytes Percent Manual 8 % (3-9); Neutrophils Absolute Manual 1.34 K/mm3 (1.3-6.7); Neutrophils Percent Manual 56 % (46-73)
[2024-12-31] MEDS: NICOTINE (*PBKC) 21 MG PATCH 1 PATCH TRANSDERM (08:22)
[2024-12-31] MEDS: APIXABAN 2.5 MG TABLET 10 MG PO ×2 (08:23→20:22)
[2024-12-31] MEDS: FOLIC ACID 1 MG TABLET PO (08:24)
[2024-12-31] MEDS: THIAMINE HCL 100 MG TABLET PO (08:24)
[2024-12-31] MEDS: CIPROFLOXACIN HC OTIC 10 ML 4 DROP EACH EAR (08:25)
[2024-12-31] MEDS: chlordiazePOXIDE (*CRX) 25 MG CAPSULE PO ×2 (11:48→18:58)
[2024-12-31] MEDS: OFLOXACIN 0.3% OPHTH SOLN 5 ML BTL 3 DROP EACH EAR ×3 (12:52→20:22)
--- NOTE | 2024-12-31 15:50 | P.PNIM_ITS ---
Progress Note: A&P Assessment and Plan (1) Pulmonary embolism: Code(s): I26.99 - Other pulmonary embolism without acute cor pulmonale Status: Acute Assessment and Plan: patient with hypoxia and dyspnea per patients daughter patient was recently dx with a PE but didn't complete treatment with anticoagulation CT PE protocol showed acute pulomary embolism started on Eliquis 10 mg PO BID x 7 days followed by 5 mg PO BID oxygen by [place] quality assurance monitor body respiratory status PT/OT (2) Acute hypoxic respiratory failure: Code(s): J96.01 - Acute respiratory failure with hypoxia Status: Acute Assessment and Plan: patient requiring o2 by NC titrate to keep O2 sats > 92% CT PE protocol neb treatments ordered if patient will need O2 on discharge will need to obtain ambulatory o2 study prior to discharge (3) Hypokalemia: Code(s): E87.6 - Hypokalemia Status: Acute Assessment and Plan: s/p IV KCL k level improved AM labs (4) Generalized weakness: Code(s): R53.1 - Weakness Status: Acute Assessment and Plan: patient reported to she uses a walker at baseline but it is broken PT/OT fall precautions (5) ACACIA (acute kidney injury): Code(s): N17.9 - Acute kidney failure, unspecified Status: Acute Assessment and Plan: IV fluids, will dc later today if patient tolerating PO intake creatinine improving AM labs (6) Alcohol intoxication: Code(s): F10.929 - Alcohol use, unspecified with intoxication, unspecified Status: Acute Assessment and Plan: ethanol level > 300 on admission patient will not report how much she drinks daily per daughter patient drinks both hard liquor and beer, but she is unable to quantify the amount reports patient goes through withdrawals frequently when she runs out of money daughter reports withdrawal symptoms include shakiness, nausea, vomiting and confusion, denies seizure activity CIWA initiated PRN Librium seizure precautions ethanol level < 10 this AM patient with withdrawal symptoms including shakiness and nausea, controlled currently with Librium PRN (7) Smoking: Code(s): F17.200 - Nicotine dependence, unspecified, uncomplicated Status: Acute Assessment and Plan: per chart patient smokes 2 PPD patient unable to tell me what she currently smokes nicotine patch ordered encourage cessation (8) COPD exacerbation: Code(s): J44.1 - Chronic obstructive pulmonary disease with (acute) exacerbation Status: Acute Assessment and Plan: patients wheezing is less today on exam, still with rales in right lung patient with worsening cough, dyspnea not improving, still with pursed lip breathing start IV solu-medrol start IV azithromycin continue duo-nebs continue o2 by [place] monitor for improvement Subjective Date/time seen: 12/31/24 15:50 Interval history: Patient seen in her room, lying in bed, in some mild distress. Patient is coughing today, still with dyspnea, pursed lip breathing while talking. Suspect patient has a COPD exacerbation. Will start IV steroids, IV azithromycin, and continue duo-nebs. Patient with withdrawal symptoms controlled with PRN Librium. Patient answers questions easier for me today and was not as belligerent. CM working on placement, patient was turned down at her first choice residential due to ETOH history. Patient working with PT/OT. Review of Systems Review of Systems: All systems reviewed & are unremarkable except as noted in HPI and below Exam Const: General: no acute distress Other: pursed lip breathing at times during visit HENMT: Face/Nose/Sinus: Normal nares present Mouth: Yes moist mucous membranes Eyes: General: appearance normal, both eyes and all related structures Sclera: sclerae normal Neck: Neck: supple Resp: Auscultation: crackles, wheezes and diminished lung sounds Other: noted pursed lip breathing GI: Auscultation: normal bowel sounds Skin: General skin exam: normal color and no rashes or lesions noted Neuro: Speech: normal speech Motor exam (neuro): Normal motor muscle tone present throughout Other: oriented to person and place, disoriented to time Extrem: General: normal to inspection Psych: Attitude: Belligerent attititude/behavior present Other: at times Objective Data Vital Signs Vital Signs: Vital Signs - 24 hr 12/30/24 16:00 12/30/24 17:21 12/30/24 17:25 Temperature 98.5 F Pulse Rate 57 L 80 79 Respiratory Rate 18 28 H 32 H Blood Pressure 140/76 Pulse Oximetry 92 98 100 Oxygen Delivery Room Air Oxygen Flow Rate 2 2 12/30/24 20:00 12/31/24 00:00 12/31/24 00:16 Temperature 98.0 F Pulse Rate 80 80 80 Respiratory Rate 20 16 16 Blood Pressure 123/76 Pulse Oximetry 98 98 98 Oxygen Delivery Nasal Cannula Non-Rebreather Mask Oxygen Flow Rate 2 2 2 12/31/24 00:26 12/31/24 06:08 12/31/24 06:17 Temperature Pulse Rate 77 85 88 Respiratory Rate 18 16 16 Blood Pressure Pulse Oximetry 98 98 99 Oxygen Delivery Oxygen Flow Rate 2 2 2 12/31/24 08:00 12/31/24 12:45 12/31/24 12:48 Temperature 97.5 F L Pulse Rate 82 101 H 98 Respiratory Rate 22 H 20 28 H Blood Pressure 148/71 H Pulse Oximetry 96 93 100 Oxygen Delivery Nasal Cannula Oxygen Flow Rate 2 0 0 Intake/Output Intake/Output: Intake & Output 12/28/24 12/29/24 12/30/24 12/31/24 23:59 23:59 23:59 23:59 Intake Total 1630 3790 3470 Output Total 1200 600 Balance 1630 2590 2870 Meds/Results Medications: Active Medications Generic Name Dose Route Start Last Admin Trade Name Freq PRN Reason Stop Dose Admin Acetaminophen 650 mg 12/29/24 18:32 12/30/24 20:37 Acetaminophen 325 Mg Tablet PO 650 mg Q4H PRN Administration Mild Pain (1-3) or Fever Albuterol/Ipratropium 3 ml 12/30/24 18:30 12/31/24 12:42 Ipratropium 0.5 Mg/Albuterol Sulfate 2.5 Mg (Base) Ampul.Neb 3 Ml INHALATION 3 ml Q6HRT PORSCHE Administration Apixaban 10 mg 12/30/24 21:00 12/31/24 08:23 Apixaban 2.5 Mg Tablet PO 01/06/25 20:59 10 mg Q12HR PORSCHE Administration Apixaban 5 mg 01/06/25 21:00 Apixaban 2.5 Mg Tablet PO Q12HR P[facility]SCHE Benzonatate 200 mg 12/31/24 17:00 Benzonatate 100 Mg Capsule PO TID [facility] Chlordiazepoxide HCl 25 mg 12/30/24 12:17 12/31/24 11:48 Chlordiazepoxide (*Crx) 25 Mg Capsule PO 25 mg Q6H PRN Administration Withdrawal Folic Acid 1 mg 12/30/24 09:00 12/31/24 08:24 Folic Acid 1 Mg Tablet PO 1 mg DAILY P[facility]SCHE Administration Guaifenesin 1,200 mg 12/31/24 21:00 Guaifenesin 12 Hr 600 Mg Tabcr PO Q12HR P[facility]SCHE Dextrose/Sodium Chloride 1,000 mls @ 100 mls/hr 12/29/24 18:35 12/31/24 12:41 Dextrose 5% Sodium Chloride 0.45% IV CONT Not Given .Q10H PORSCHE Azithromycin 500 mg/ Sodium 250 mls @ 250 mls/hr 12/31/24 16:00 Chloride IVPB Q24H [facility]SCHE Methylprednisolone Sodium Succinate 40 mg 01/01/25 09:00 Methylprednisolone Sod Succ 40 Mg Vial IV PUSH DAILY P[facility]SCHE Nicotine 1 patch 12/30/24 14:30 12/31/24 08:22 Nicotine (*Pbkc) 21 Mg Patch TRANSDERM 1 patch DAILY PORSCHE Administration Ofloxacin 3 drop 12/31/24 13:00 12/31/24 12:52 Ofloxacin 0.3% Ophth Soln 5 Ml Btl EACH EAR 3 drop QID PORSCHE Administration Ondansetron HCl 4 mg 12/29/24 18:32 12/30/24 06:10 Ondansetron Inj 4 Mg/2 Ml Vial IV PUSH 4 mg Q6H PRN Administration Nausea And Vomiting Thiamine HCl 100 mg 12/30/24 09:00 12/31/24 08:24 Thiamine Hcl 100 Mg Tablet PO 100 mg QAM P[facility]SCHE Administration Radiology Results: ITS Impressions Head CT 12/29/24 15:41 Impression: 1.No acute intracranial abnormality. Cervical Spine CT 12/29/24 15:59 Impression: No acute abnormality. Chest CTA 12/30/24 12:40 IMPRESSION: 1. Single pulmonary embolism in a subsegmental pulmonary artery in the lateral basilar segment of the right lower lobe. No associated right heart strain. Labs Labs: Laboratory Results - last 24 hr 12/31/24 12/31/24 12/31/24 00:13 05:13 12:09 WBC 2.4 L RBC 3.42 L Hgb 10.9 L Hct 35.0 MCV 102.3 H MCH 31.9 H MCHC 31.1 L RDW 15.9 H Plt Count 85 L MPV 10.1 Immature Gran % (Auto) Not Reportable Neut % (Auto) Not Reportable Lymph % (Auto) Not Reportable [place] % (Auto) Not Reportable Eos % (Auto) Not Reportable Baso % (Auto) Not Reportable Lymph # (Auto) Not Reportable [place] # (Auto) Not Reportable Eos # (Auto) Not Reportable Baso # (Auto) Not Reportable Abs Immat Gran (auto) Not Reportable Absolute Neuts (auto) Not Reportable Absolute Nucleated RBC Not Reportable Neutrophils % (Manual) 56 Band Neutrophils % 0 Lymphocytes % (Manual) 34 Monocytes % (Manual) 8 Eosinophils % (Manual) 2 Basophils % (Manual) 0 Nucleated RBC % Not Reportable Abs Neuts (Manual) 1.34 Abs Lymphs (Manual) 0.81 L Abs Monocytes (Manual) 0.19 Absolute Eos (Manual) 0.04 Abs Basophils (Manual) 0.00 Platelet Estimate Slightly decreased % Immature Plt Fraction 5.0 Schistocytes Not Reportable Sodium 141 Potassium 3.2 L Chloride 104 Carbon Dioxide 31 H Anion Gap 6 BUN 15 Creatinine 1.10 H Estim Creat Clear Calc 36 Estimated GFR 50 L Glucose 120 H POC Capillary Glucose 141 H 256 H Calculated Osmolality 293 Calcium 8.1 L Total Bilirubin 0.5 AST 58 H ALT 33 Alkaline Phosphatase 64 Total Protein 5.2 L Albumin 3.1 L Quality VTE Prophylaxis VTE prophylaxis: pharmacologic ordered
[2024-12-31] MEDS: AZITHROMYCIN IV 500 MG in SODIUM CHLORIDE 0.9% IV 250 ML IVPB (16:30)
[2024-12-31] MEDS: BENZONATATE 100 MG CAPSULE 200 MG PO (17:29)
[2024-12-31] MEDS: ACETAMINOPHEN 325 MG TABLET 650 MG PO (19:04)
[2024-12-31] MEDS: guaiFENesin 12 HR 600 MG TABCR 1200 MG PO (20:22)
[2025-01-01] VITALS: BP 163/97; PULSE 99; RESP 20; TEMP 36.7; O2SAT 96
[2025-01-01] MEDS: DEXTROSE 5%/0.45% SOD CHL 1,000 ML 100 ML IV CONT ×2 (00:46→10:22)
[2025-01-01] MEDS: IPRATROPIUM 0.5 MG/ALBUTEROL SULFATE 2.5 MG (BASE) AMPUL.NEB 3 ML INHALATION ×4 (00:46→18:37)
[2025-01-01 04:00] VITALS: BP 144/70
[2025-01-01 05:30] VITALS: O2SAT 96
[2025-01-01 07:26] LABS: Hematocrit 36.7 % (35.0-42.0); Hemoglobin 11.3 g/dL (11.7-13.8); Immature Platelet Fraction Pct 6.0 % (1.0-7.0); Mean Corpuscular HGB Conc 30.8 g/dL (32-36); Mean Corpuscular Hemoglobin 31.7 pg (27.0-31.0); Mean Corpuscular Volume 102.8 fL (78.0-102.0); Platelet Count Result 99 K/mm3 (150-420); Red Blood Count 3.57 M/mm3 (4.20-5.40); White Blood Count 2.5 K/mm3 (4.8-10.8)
[2025-01-01 07:39] LABS: Alanine Aminotransferase 39 U/L (6-35); Albumin Level 3.6 g/dL (3.5-5.1); Alkaline Phosphatase 72 U/L (38-126); Anion Gap 11 mmol/L (4-12); Aspartate Amino Transferase 49 U/L (14-36); Bilirubin,Total 0.6 mg/dL (0.2-1.3); Blood Urea Nitrogen 17 mg/dL (7-17); Calcium 8.8 mg/dL (8.4-10.2); Carbon Dioxide 27 mmol/L (22-30); Chloride 102 mmol/L (98-107); Estimated CRCL calculation 42 ml/min; Estimated Glomerular Filt Rate 59; Glucose 331 mg/dL (65-110); Osmolality Calculated 304 mOsm/kg (285-295); Potassium 3.8 mmol/L (3.4-5.0); Sodium 140 mmol/L (137-145); Total Protein 6.0 g/dL (6.3-8.2)
[2025-01-01 08:00] VITALS: BP 147/76; PULSE 103; RESP 18; TEMP 36.3; O2SAT 96
[2025-01-01 09:16] LABS: Band Neutrophils Percent 0 % (0-6); Neutrophils Absolute Manual 2.15 K/mm3 (1.3-6.7); Neutrophils Percent Manual 86 % (46-73); Total Cells Counted 100
[2025-01-01 09:17] LABS: Basophils Absolute Manual 0.00 K/mm3 (0-0.1); Basophils Percent Manual 0 % (0-1); Eosinophils Absolute Manual 0.00 K/mm3 (0.02-0.50); Eosinophils Percent Manual 0 % (1-6); Lymphocytes Absolute Manual 0.25 K/mm3 (1.1-4.5); Lymphocytes Percent Manual 10 % (18-44); Monocytes Absolute Manual 0.10 K/mm3 (0.1-0.90); Monocytes Percent Manual 4 % (3-9)
--- NOTE | 2025-01-01 09:59 | P.PNIM_ITS ---
Progress Note: A&P Assessment and Plan (1) Pulmonary embolism: Code(s): I26.99 - Other pulmonary embolism without acute cor pulmonale Status: Acute Assessment and Plan: patient with hypoxia and dyspnea per patients daughter patient was recently dx with a PE but didn't complete treatment with anticoagulation CT PE protocol showed acute pulomary embolism started on Eliquis 10 mg PO BID x 7 days followed by 5 mg PO BID oxygen by [place] quality assurance monitor body respiratory status PT/OT (2) Acute hypoxic respiratory failure: Code(s): J96.01 - Acute respiratory failure with hypoxia Status: Acute Assessment and Plan: patient requiring o2 by NC titrate to keep O2 sats > 92% CT PE protocol neb treatments ordered if patient will need O2 on discharge will need to obtain ambulatory o2 study prior to discharge (3) Hypokalemia: Code(s): E87.6 - Hypokalemia Status: Acute Assessment and Plan: s/p IV KCL k level improved AM labs (4) Generalized weakness: Code(s): R53.1 - Weakness Status: Acute Assessment and Plan: patient reported to CM she uses a walker at baseline but it is broken PT/OT fall precautions CM working to find placement for patient (5) ACACIA (acute kidney injury): Code(s): N17.9 - Acute kidney failure, unspecified Status: Acute Assessment and Plan: IV fluids, will dc later today if patient tolerating PO intake creatinine improving AM labs (6) Alcohol intoxication: Code(s): F10.929 - Alcohol use, unspecified with intoxication, unspecified Status: Acute Assessment and Plan: ethanol level > 300 on admission patient will not report how much she drinks daily per daughter patient drinks both hard liquor and beer, but she is unable to alla ntify the amount reports patient goes through withdrawals frequently when she runs out of money daughter reports withdrawal symptoms include shakiness, nausea, vomiting and confusion, denies seizure activity CIWA initiated PRN Librium seizure precautions ethanol level < 10 on 12/30 patient with withdrawal symptoms including shakiness and anxiety today patient more anxious today add Ativan PRN (7) Smoking: Code(s): F17.200 - Nicotine dependence, unspecified, uncomplicated Status: Acute Assessment and Plan: per chart patient smokes 2 PPD patient unable to tell me what she currently smokes nicotine patch ordered encourage cessation (8) COPD exacerbation: Code(s): J44.1 - Chronic obstructive pulmonary disease with (acute) exacerbation Status: Acute Assessment and Plan: patients wheezing is less today on exam, still with rales in right lung patient with worsening cough, dyspnea not improving, still with pursed lip breathing IV solu-medrol change to PO prednisone today IV azithromycin change to PO today continue duo-nebs continue o2 by [place] monitor for improvement Subjective Date/time seen: 01/01/25 09:59 Interval history: patient seen for a follow up visit. Patient appears more anxious today. Patient still with some cough, dyspnea, and on o2 by NC. Patient does not appear to be pursed lip breathing during toays visit. Patient denies pain. Change patients steroids and azithromycin to PO as patient had an IV infiltrate and she is not happy about recieiving medicine through the IV. Continue CIWA protocol and PRN Librium. Add PRN Ativan for the anxiety. Review of Systems Review of Systems: All systems reviewed & are unremarkable except as noted in HPI and below Exam Const: General: no acute distress Other: pursed lip breathing at times during visit HENMT: Face/Nose/Sinus: Normal nares present Mouth: Yes moist mucous membranes Eyes: General: appearance normal, both eyes and all related structures Sclera: sclerae normal Neck: Neck: supple Resp: Auscultation: crackles and diminished lung sounds GI: Auscultation: normal bowel sounds Skin: General skin exam: normal color and no rashes or lesions noted Neuro: Speech: normal speech Motor exam (neuro): Normal motor muscle tone present throughout Other: oriented to person and place, disoriented to time Extrem: General: normal to inspection Psych: Attitude: Belligerent attititude/behavior present Other: at times Objective Data Vital Signs Vital Signs: Vital Signs - 24 hr 12/31/24 12:45 12/31/24 12:48 12/31/24 16:00 Temperature 98.9 F Pulse Rate 101 H 98 96 Respiratory Rate 20 28 H 20 Blood Pressure Pulse Oximetry 93 100 99 Oxygen Delivery Nasal Cannula Oxygen Flow Rate 0 0 1 12/31/24 17:11 12/31/24 17:19 12/31/24 20:00 Temperature Pulse Rate 89 96 Respiratory Rate 20 20 Blood Pressure 163/97 H Pulse Oximetry 96 100 Oxygen Delivery Oxygen Flow Rate 2 2 12/31/24 20:00 01/01/25 00:00 01/01/25 00:00 Temperature 98.1 F Pulse Rate 99 99 Respiratory Rate 20 20 Blood Pressure 163/97 H 163/97 H Pulse Oximetry 97 96 Oxygen Delivery Nasal Cannula Nasal Cannula Oxygen Flow Rate 2 2 01/01/25 04:00 01/01/25 08:00 Temperature 97.4 F L Pulse Rate 103 H Respiratory Rate 18 Blood Pressure 144/70 H 147/76 H Pulse Oximetry 96 Oxygen Delivery Nasal Cannula Oxygen Flow Rate 3 Intake/Output Intake/Output: Intake & Output 12/29/24 12/30/24 12/31/24 01/01/25 23:59 23:59 23:59 23:59 Intake Total 1630 3790 4320 550 Output Total 1200 600 Balance 1630 2590 3720 550 Meds/Results Medications: Active Medications Generic Name Dose Route Start Last Admin Trade Name Freq PRN Reason Stop Dose Admin Acetaminophen 650 mg 12/29/24 18:32 12/31/24 19:04 Acetaminophen 325 Mg Tablet PO 650 mg Q4H PRN Administration Mild Pain (1-3) or Fever Albuterol/Ipratropium 3 ml 12/30/24 18:30 01/01/25 05:32 Ipratropium 0.5 Mg/Albuterol Sulfate 2.5 Mg (Base) Ampul.Neb 3 Ml INHALATION 3 ml Q6HRT PORSCHE Administration Apixaban 10 mg 12/30/24 21:00 12/31/24 20:22 Apixaban 2.5 Mg Tablet PO 01/06/25 20:59 10 mg Q12HR PORSCHE Administration Apixaban 5 mg 01/06/25 21:00 Apixaban 2.5 Mg Tablet PO Q12HR [facility]SCHE Benzonatate 200 mg 12/31/24 17:00 12/31/24 17:29 Benzonatate 100 Mg Capsule PO 200 mg TID PORSCHE Administration Chlordiazepoxide HCl 25 mg 12/30/24 12:17 12/31/24 18:58 Chlordiazepoxide (*Crx) 25 Mg Capsule PO 25 mg Q6H PRN Administration Withdrawal Folic Acid 1 mg 12/30/24 09:00 12/31/24 08:24 Folic Acid 1 Mg Tablet PO 1 mg DAILY PORSCHE Administration Guaifenesin 1,200 mg 12/31/24 21:00 12/31/24 20:22 Guaifenesin 12 Hr 600 Mg Tabcr PO 1,200 mg Q12HR PORSCHE Administration Dextrose/Sodium Chloride 1,000 mls @ 100 mls/hr 12/29/24 18:35 01/01/25 00:46 Dextrose 5% Sodium Chloride 0.45% IV CONT 100 mls/hr .Q10H PORSCHE Administration Azithromycin 500 mg/ Sodium 250 mls @ 250 mls/hr 12/31/24 16:00 12/31/24 19:02 Chloride IVPB Infused Q24H PORSCHE Infusion Methylprednisolone Sodium Succinate 40 mg 01/01/25 09:00 Methylprednisolone Sod Succ 40 Mg Vial IV PUSH DAILY PORSCHE Nicotine 1 patch 12/30/24 14:30 12/31/24 08:22 Nicotine (*Pbkc) 21 Mg Patch TRANSDERM 1 patch DAILY PORSCHE Administration Ofloxacin 3 drop 12/31/24 13:00 12/31/24 20:22 Ofloxacin 0.3% Ophth Soln 5 Ml Btl EACH EAR 3 drop QID PORSCHE Administration Ondansetron HCl 4 mg 12/29/24 18:32 12/30/24 06:10 Ondansetron Inj 4 Mg/2 Ml Vial IV PUSH 4 mg Q6H PRN Administration Nausea And Vomiting Thiamine HCl 100 mg 12/30/24 09:00 12/31/24 08:24 Thiamine Hcl 100 Mg Tablet PO 100 mg QAM PORSCHE Administration Radiology Results: ITS Impressions Head CT 12/29/24 15:41 Impression: 1.No acute intracranial abnormality. Cervical Spine CT 12/29/24 15:59 Impression: No acute abnormality. Chest CTA 12/30/24 12:40 IMPRESSION: 1. Single pulmonary embolism in a subsegmental pulmonary artery in the lateral basilar segment of the right lower lobe. No associated right heart strain. Labs Labs: Laboratory Results - last 24 hr 12/31/24 01/01/25 01/01/25 12:09 05:37 06:44 WBC 2.5 L RBC 3.57 L Hgb 11.3 L Hct 36.7 MCV 102.8 H MCH 31.7 H MCHC 30.8 L RDW 15.9 H Plt Count 99 L MPV 11.2 Immature Gran % (Auto) Not Reportable Neut % (Auto) Not Reportable Lymph % (Auto) Not Reportable [place] % (Auto) Not Reportable Eos % (Auto) Not Reportable Baso % (Auto) Not Reportable Lymph # (Auto) Not Reportable [place] # (Auto) Not Reportable Eos # (Auto) Not Reportable Baso # (Auto) Not Reportable Abs Immat Gran (auto) Not Reportable Absolute Neuts (auto) Not Reportable Absolute Nucleated RBC Not Reportable Total Counted 100 Neutrophils % (Manual) 86 H Band Neutrophils % 0 Lymphocytes % (Manual) 10 L Monocytes % (Manual) 4 Eosinophils % (Manual) 0 L Basophils % (Manual) 0 Nucleated RBC % Not Reportable Abs Neuts (Manual) 2.15 Abs Lymphs (Manual) 0.25 L Abs Monocytes (Manual) 0.10 Absolute Eos (Manual) 0.00 L Abs Basophils (Manual) 0.00 Platelet Estimate Decreased % Immature Plt Fraction 6.0 Schistocytes Not Reportable Sodium 140 Potassium 3.8 Chloride 102 Carbon Dioxide 27 Anion Gap 11 BUN 17 Creatinine 0.95 Estim Creat Clear Calc 42 Estimated GFR 59 Glucose 331 H POC Capillary Glucose 256 H 383 H Calculated Osmolality 304 H Calcium 8.8 Total Bilirubin 0.6 AST 49 H ALT 39 H Alkaline Phosphatase 72 Total Protein 6.0 L Albumin 3.6 01/01/25 08:23 WBC RBC Hgb Hct MCV MCH MCHC RDW Plt Count MPV Immature Gran % (Auto) Neut % (Auto) Lymph % (Auto) [place] % (Auto) Eos % (Auto) Baso % (Auto) Lymph # (Auto) [place] # (Auto) Eos # (Auto) Baso # (Auto) Abs Immat Gran (auto) Absolute Neuts (auto) Absolute Nucleated RBC Total Counted Neutrophils % (Manual) Band Neutrophils % Lymphocytes % (Manual) Monocytes % (Manual) Eosinophils % (Manual) Basophils % (Manual) Nucleated RBC % Abs Neuts (Manual) Abs Lymphs (Manual) Abs Monocytes (Manual) Absolute Eos (Manual) Abs Basophils (Manual) Platelet Estimate % Immature Plt Fraction Schistocytes Sodium Potassium Chloride Carbon Dioxide Anion Gap BUN Creatinine Estim Creat Clear Calc Estimated GFR Glucose POC Capillary Glucose 307 H Calculated Osmolality Calcium Total Bilirubin AST ALT Alkaline Phosphatase Total Protein Albumin Quality VTE Prophylaxis VTE prophylaxis: pharmacologic ordered
[2025-01-01] MEDS: NICOTINE (*PBKC) 21 MG PATCH 1 PATCH TRANSDERM (10:11)
[2025-01-01] MEDS: THIAMINE HCL 100 MG TABLET PO (10:12)
[2025-01-01] MEDS: BENZONATATE 100 MG CAPSULE 200 MG PO ×3 (10:12→16:16)
[2025-01-01] MEDS: FOLIC ACID 1 MG TABLET PO (10:12)
[2025-01-01] MEDS: guaiFENesin 12 HR 600 MG TABCR 1200 MG PO ×2 (10:13→21:04)
[2025-01-01] MEDS: OFLOXACIN 0.3% OPHTH SOLN 5 ML BTL 3 DROP EACH EAR ×4 (10:14→21:04)
[2025-01-01] MEDS: APIXABAN 2.5 MG TABLET 10 MG PO ×2 (10:14→21:03)
[2025-01-01] MEDS: AZITHROMYCIN 250 MG TABLET 500 MG PO (14:40)
[2025-01-01 16:00] VITALS: BP 150/80; PULSE 99; RESP 16; TEMP 37.1; O2SAT 96
[2025-01-01] MEDS: LORazepam (*CRX) 1 MG TABLET PO (16:16)
[2025-01-01] MEDS: chlordiazePOXIDE (*CRX) 25 MG CAPSULE PO (17:35)
[2025-01-01 23:55] VITALS: BP 161/88; PULSE 105; RESP 20; TEMP 36.6; O2SAT 97
[2025-01-02] VITALS (9 sets, daily range): BP systolic 147–157; BP diastolic 77–85; PULSE 101–116; RESP 18–22; TEMP 36.4–36.9; O2SAT 85–98
[2025-01-02] MEDS: IPRATROPIUM 0.5 MG/ALBUTEROL SULFATE 2.5 MG (BASE) AMPUL.NEB 3 ML INHALATION ×4 (00:14→18:27)
[2025-01-02] MEDS: ACETAMINOPHEN 325 MG TABLET 650 MG PO ×3 (02:11→12:58)
[2025-01-02] MEDS: LORazepam (*CRX) 1 MG TABLET PO ×3 (02:11→21:07)
[2025-01-02] MEDS: chlordiazePOXIDE (*CRX) 25 MG CAPSULE PO ×3 (02:11→21:07)
[2025-01-02 06:33] LABS: Hematocrit 39.6 % (35.0-42.0); Hemoglobin 12.4 g/dL (11.7-13.8); Immature Granulocyte Percent A 1.2 % (0.0-0.0); Immature Platelet Fraction Pct 6.6 % (1.0-7.0); Lymphocytes Absolute Auto 0.46 K/mm3 (1.10-4.50); Mean Corpuscular HGB Conc 31.3 g/dL (32-36); Mean Corpuscular Hemoglobin 31.7 pg (27.0-31.0); Mean Corpuscular Volume 101.3 fL (78.0-102.0); Nucleated Red Blood Cells Absolute Auto 0.00 K/mm3 (0.00-0.00); Nucleated Red Blood Cells Perc 0.0 % (0-0.0); Platelet Count Result 133 K/mm3 (150-420); Red Blood Count 3.91 M/mm3 (4.20-5.40); White Blood Count 5.2 K/mm3 (4.8-10.8)
[2025-01-02 06:49] LABS: Alanine Aminotransferase 36 U/L (6-35); Alkaline Phosphatase 72 U/L (38-126); Aspartate Amino Transferase 39 U/L (14-36); Bilirubin,Total 0.6 mg/dL (0.2-1.3); Blood Urea Nitrogen 21 mg/dL (7-17); Carbon Dioxide 30 mmol/L (22-30); Estimated CRCL calculation 45 ml/min; Estimated Glomerular Filt Rate > 60
[2025-01-02 07:02] LABS: Albumin Level 4.0 g/dL (3.5-5.1); Anion Gap 9 mmol/L (4-12); Calcium 9.4 mg/dL (8.4-10.2); Chloride 105 mmol/L (98-107); Glucose 126 mg/dL (65-110); Osmolality Calculated 303 mOsm/kg (285-295); Potassium 4.3 mmol/L (3.4-5.0); Sodium 144 mmol/L (137-145); Total Protein 6.7 g/dL (6.3-8.2)
--- NOTE | 2025-01-02 07:29 | PM.IMPN ---
Progress Note: A&P Assessment and Plan (1) Pulmonary embolism: Code(s): I26.99 - Other pulmonary embolism without acute cor pulmonale Status: Acute Assessment and Plan: patient with hypoxia and dyspnea per patients daughter patient was recently dx with a PE but didn't complete treatment with anticoagulation CT PE protocol showed acute pulomary embolism Continue Eliquis 10 mg PO BID x 7 days followed by 5 mg PO BID oxygen by [place] [employer] respiratory status PT/OT (2) Acute hypoxic respiratory failure: Code(s): J96.01 - Acute respiratory failure with hypoxia Status: Acute Assessment and Plan: patient requiring o2 by [place] titrate to keep O2 sats > 92% CT PE protocol neb treatments ordered if patient will need O2 on discharge will need to obtain ambulatory o2 study prior to discharge (3) Hypokalemia: Code(s): E87.6 - Hypokalemia Status: Acute Assessment and Plan: s/p IV KCL k level improved AM labs (4) Generalized weakness: Code(s): R53.1 - Weakness Status: Acute Assessment and Plan: patient reported to CM she uses a walker at baseline but it is broken PT/OT fall precautions CM working to find placement for patient (5) ACACIA (acute kidney injury): Code(s): N17.9 - Acute kidney failure, unspecified Status: Acute Assessment and Plan: IV fluids, will dc later today if patient tolerating PO intake creatinine improved AM labs (6) Alcohol intoxication: Code(s): F10.929 - Alcohol use, unspecified with intoxication, unspecified Status: Acute Assessment and Plan: ethanol level > 300 on admission patient will not report how much she drinks daily per daughter patient drinks both hard liquor and beer, but she is unable to quantify the amount reports patient goes through withdrawals frequently when she runs out of money daughter reports withdrawal symptoms include shakiness, nausea, vomiting and confusion, denies seizure activity CIWA initiated PRN Librium seizure precautions ethanol level < 10 on 12/30 patient still experiencing some withdrawal symptoms, mainly tremors and anxiety continue PRN ativan and PRN Librium (7) Smoking: Code(s): F17.200 - Nicotine dependence, unspecified, uncomplicated Status: Acute Assessment and Plan: per chart patient smokes 2 PPD patient unable to tell me what she currently smokes nicotine patch ordered encourage cessation (8) COPD exacerbation: Code(s): J44.1 - Chronic obstructive pulmonary disease with (acute) exacerbation Status: Acute Assessment and Plan: 01/01 patients wheezing is less today on exam, still with rales in right lung patient with worsening cough, dyspnea not improving, still with pursed lip breathing IV solu-medrol change to PO prednisone 01/02 IV azithromycin change to PO on 01/01 continue duo-nebs continue o2 by [place] monitor for improvement Subjective Date/time seen: 01/02/25 07:29 Interval history: Patient seen for a follow up visit. Patient sitting up in bed, appears anxious, pursed lip breathing. Patient wears oxygen by [place], but at times removes it. Patient with complaints of back pain and is asking for Flexeril. Patient will be started on Robaxin PRN for this back pain. Patient continues on PO azithromycin and PO prednisone for her COPD exacerbation. Patient coughing more today, encouraged incentive spirometer and deep breathing as patient is able. Nursing reports PRN Ativan is helping for patient's anxiety. Review of Systems Review of Systems: All systems reviewed & are unremarkable except as noted in HPI and below Exam Const: General: no acute distress Other: pursed lip breathing at times during visit HENMT: Face/Nose/Sinus: Normal nares present Mouth: Yes moist mucous membranes Eyes: General: appearance normal, both eyes and all related structures Sclera: sclerae normal Neck: Neck: supple Resp: Auscultation: crackles, rhonchi and diminished lung sounds GI: Auscultation: normal bowel sounds Skin: General skin exam: normal color and no rashes or lesions noted Neuro: Speech: normal speech Motor exam (neuro): Normal motor muscle tone present throughout Other: oriented to person and place, disoriented to time Extrem: General: normal to inspection Psych: Attitude: Belligerent attititude/behavior present Other: at times Objective Data Vital Signs Vital Signs: Vital Signs - 24 hr 01/01/25 08:00 01/01/25 16:00 01/01/25 23:55 Temperature 97.4 F L 98.7 F 97.9 F Pulse Rate 103 H 99 105 H Respiratory Rate 18 16 20 Blood Pressure 147/76 H 150/80 H 161/88 H Pulse Oximetry 96 96 97 Oxygen Delivery Nasal Cannula Nasal Cannula Nasal Cannula Oxygen Flow Rate 3 2.5 2.5 01/02/25 00:12 01/02/25 05:30 01/02/25 05:44 Temperature Pulse Rate 103 H 101 H 106 H Respiratory Rate 18 20 20 Blood Pressure Pulse Oximetry 95 92 95 Oxygen Delivery Oxygen Flow Rate 2.5 3.5 2.5 Intake/Output Intake/Output: Intake & Output 12/30/24 12/31/24 01/01/25 01/02/25 23:59 23:59 23:59 23:59 Intake Total 3790 4320 2470 640 Output Total 1200 600 Balance 2590 3720 2470 640 Meds/Results Medications: Active Medications Generic Name Dose Route Start Last Admin Trade Name Freq PRN Reason Stop Dose Admin Acetaminophen 650 mg 12/29/24 18:32 01/02/25 02:11 Acetaminophen 325 Mg Tablet PO 650 mg Q4H PRN Administration Mild Pain (1-3) or Fever Albuterol/Ipratropium 3 ml 12/30/24 18:30 01/02/25 05:33 Ipratropium 0.5 Mg/Albuterol Sulfate 2.5 Mg (Base) Ampul.Neb 3 Ml INHALATION 3 ml Q6HRT PORSCHE Administration Apixaban 10 mg 12/30/24 21:00 01/01/25 21:03 Apixaban 2.5 Mg Tablet PO 01/06/25 20:59 10 mg Q12HR PORSCHE Administration Apixaban 5 mg 01/06/25 21:00 Apixaban 2.5 Mg Tablet PO Q12HR PORSCHE Azithromycin 500 mg 01/01/25 14:00 01/01/25 14:40 Azithromycin 250 Mg Tablet PO 500 mg Q24H PORSCHE Administration Benzonatate 200 mg 12/31/24 17:00 01/01/25 16:16 Benzonatate 100 Mg Capsule PO 200 mg TID PORSCHE Administration Chlordiazepoxide HCl 25 mg 12/30/24 12:17 01/02/25 02:11 Chlordiazepoxide (*Crx) 25 Mg Capsule PO 25 mg Q6H PRN Administration Withdrawal Folic Acid 1 mg 12/30/24 09:00 01/01/25 10:12 Folic Acid 1 Mg Tablet PO 1 mg DAILY PORSCHE Administration Guaifenesin 1,200 mg 12/31/24 21:00 01/01/25 21:04 Guaifenesin 12 Hr 600 Mg Tabcr PO 1,200 mg Q12HR PORSCHE Administration Lorazepam 1 mg 01/01/25 13:02 01/02/25 02:11 Lorazepam (*Crx) 1 Mg Tablet PO 1 mg Q6H PRN Administration Anxiety Methylprednisolone Sodium Succinate 40 mg 01/01/25 09:00 01/01/25 10:12 Methylprednisolone Sod Succ 40 Mg Vial IV PUSH 40 mg DAILY PORSCHE Administration Nicotine 1 patch 12/30/24 14:30 01/01/25 10:11 Nicotine (*Pbkc) 21 Mg Patch TRANSDERM 1 patch DAILY P[facility]SCHE Administration Ofloxacin 3 drop 12/31/24 13:00 01/01/25 21:04 Ofloxacin 0.3% Ophth Soln 5 Ml Btl EACH EAR 3 drop QID PORSCHE Administration Ondansetron HCl 4 mg 12/29/24 18:32 12/30/24 06:10 Ondansetron Inj 4 Mg/2 Ml Vial IV PUSH 4 mg Q6H PRN Administration Nausea And Vomiting Thiamine HCl 100 mg 12/30/24 09:00 01/01/25 10:12 Thiamine Hcl 100 Mg Tablet PO 100 mg QAM PORSCHE Administration Radiology Results: ITS Impressions Head CT 12/29/24 15:41 Impression: 1.No acute intracranial abnormality. Cervical Spine CT 12/29/24 15:59 Impression: No acute abnormality. Chest CTA 12/30/24 12:40 IMPRESSION: 1. Single pulmonary embolism in a subsegmental pulmonary artery in the lateral basilar segment of the right lower lobe. No associated right heart strain. Labs Labs: Laboratory Results - last 24 hr 01/01/25 01/01/25 01/02/25 06:44 08:23 06:09 WBC 2.5 L 5.2 RBC 3.57 L 3.91 L Hgb 11.3 L 12.4 Hct 36.7 39.6 MCV 102.8 H 101.3 MCH 31.7 H 31.7 H MCHC 30.8 L 31.3 L RDW 15.9 H 16.3 H Plt Count 99 L 133 L MPV 11.2 11.2 Immature Gran % (Auto) Not Reportable 1.2 H Neut % (Auto) Not Reportable 81.9 H Lymph % (Auto) Not Reportable 8.9 L [place] % (Auto) Not Reportable 7.8 Eos % (Auto) Not Reportable 0.0 L Baso % (Auto) Not Reportable 0.2 Lymph # (Auto) Not Reportable 0.46 L [place] # (Auto) Not Reportable 0.40 Eos # (Auto) Not Reportable 0.00 L Baso # (Auto) Not Reportable 0.01 Abs Immat Gran (auto) Not Reportable 0.06 H Absolute Neuts (auto) Not Reportable 4.23 Absolute Nucleated RBC Not Reportable 0.00 Total Counted 100 Neutrophils % (Manual) 86 H Band Neutrophils % 0 Lymphocytes % (Manual) 10 L Monocytes % (Manual) 4 Eosinophils % (Manual) 0 L Basophils % (Manual) 0 Nucleated RBC % Not Reportable 0.0 Abs Neuts (Manual) 2.15 Abs Lymphs (Manual) 0.25 L Abs Monocytes (Manual) 0.10 Absolute Eos (Manual) 0.00 L Abs Basophils (Manual) 0.00 Platelet Estimate Decreased % Immature Plt Fraction 6.0 6.6 Schistocytes Not Reportable Sodium 140 144 Potassium 3.8 4.3 Chloride 102 105 Carbon Dioxide 27 30 Anion Gap 11 9 BUN 17 21 H Creatinine 0.95 0.88 Estim Creat Clear Calc 42 45 Estimated GFR 59 > 60 Glucose 331 H 126 H POC Capillary Glucose 307 H Calculated Osmolality 304 H 303 H Calcium 8.8 9.4 Total Bilirubin 0.6 0.6 AST 49 H 39 H ALT 39 H 36 H Alkaline Phosphatase 72 72 Total Protein 6.0 L 6.7 Albumin 3.6 4.0 Quality VTE Prophylaxis VTE prophylaxis: pharmacologic ordered
[2025-01-02] MEDS: BENZONATATE 100 MG CAPSULE 200 MG PO ×3 (08:31→21:08)
[2025-01-02] MEDS: APIXABAN 2.5 MG TABLET 10 MG PO ×2 (08:31→21:08)
[2025-01-02] MEDS: FOLIC ACID 1 MG TABLET PO (08:32)
[2025-01-02] MEDS: THIAMINE HCL 100 MG TABLET PO (08:32)
[2025-01-02] MEDS: OFLOXACIN 0.3% OPHTH SOLN 5 ML BTL 3 DROP EACH EAR ×3 (08:32→17:13)
[2025-01-02] MEDS: guaiFENesin 12 HR 600 MG TABCR 1200 MG PO ×2 (08:32→21:08)
[2025-01-02] MEDS: NICOTINE (*PBKC) 21 MG PATCH 1 PATCH TRANSDERM (08:32)
--- NOTE | 2025-01-02 09:12 | PC.NURSE ---
Patient noted to have pursed lip breathing this AM, O2 83, encouraged to breath through nasal canula in her nares. Pt informs she cannot breathe through nose, placed simple maskn @ 3.5 L. O2 sats up to 94%. Once recovered, Nasal canula replaced. Patient shows no s/s of distress and is up eating breakfast HOB raised.
[2025-01-02] MEDS: AZITHROMYCIN 250 MG TABLET 500 MG PO (12:58)
--- NOTE | 2025-01-02 13:26 | PC.NURSE ---
Today when lunch was delivered and food on bedside table patient throws food cover and was heard saying I dont eat speghetti. Kitchen staff preparred new lunch for patient.
--- NOTE | 2025-01-02 14:54 | PCPTNOTE ---
I attempted to see Mrs. Saxena on two occasions today for skilled PT treatment. Mrs. Saxena refused PT treatment on both occasions, the first time stating not right now but that she would do therapy later. Upon returning approx. 30 minutes later Mrs. Saxena refused PT again stating I just want to rest. Educated pt on the importance of participating in skilled PT treatment sessions to improve her strength, endurance, and functional independence. Pt verbalizes she does not want to do therapy today but states she will participate tomorrow. Estefania Wyatt, DPT
--- NOTE | 2025-01-02 20:00 | PC.NURSE ---
Patient's son and granddaughter here to visit. Son was exhibiting signs of being under the influence of some type of substance.
[2025-01-03] VITALS (13 sets, daily range): BP systolic 131–153; BP diastolic 69–84; PULSE 82–110; RESP 16–32; TEMP 36.5–36.6; O2SAT 91–100
[2025-01-03] MEDS: IPRATROPIUM 0.5 MG/ALBUTEROL SULFATE 2.5 MG (BASE) AMPUL.NEB 3 ML INHALATION ×4 (00:41→17:23)
[2025-01-03] MEDS: BENZONATATE 100 MG CAPSULE 200 MG PO ×3 (05:37→21:45)
[2025-01-03 06:34] LABS: Hematocrit 38.9 % (35.0-42.0); Hemoglobin 12.0 g/dL (11.7-13.8); Immature Granulocyte Percent A 0.8 % (0.0-0.0); Lymphocytes Absolute Auto 0.51 K/mm3 (1.10-4.50); Mean Corpuscular HGB Conc 30.8 g/dL (32-36); Mean Corpuscular Hemoglobin 31.5 pg (27.0-31.0); Mean Corpuscular Volume 102.1 fL (78.0-102.0); Nucleated Red Blood Cells Absolute Auto 0.00 K/mm3 (0.00-0.00); Nucleated Red Blood Cells Perc 0.0 % (0-0.0); Platelet Count Result 142 K/mm3 (150-420); Red Blood Count 3.81 M/mm3 (4.20-5.40); White Blood Count 4.9 K/mm3 (4.8-10.8)
[2025-01-03 06:46] LABS: Alanine Aminotransferase 31 U/L (6-35); Albumin Level 3.7 g/dL (3.5-5.1); Alkaline Phosphatase 62 U/L (38-126); Anion Gap 7 mmol/L (4-12); Aspartate Amino Transferase 29 U/L (14-36); Bilirubin,Total 0.6 mg/dL (0.2-1.3); Blood Urea Nitrogen 19 mg/dL (7-17); Calcium 9.4 mg/dL (8.4-10.2); Carbon Dioxide 34 mmol/L (22-30); Chloride 103 mmol/L (98-107); Estimated CRCL calculation 44 ml/min; Estimated Glomerular Filt Rate > 60; Glucose 120 mg/dL (65-110); Osmolality Calculated 301 mOsm/kg (285-295); Potassium 4.3 mmol/L (3.4-5.0); Sodium 144 mmol/L (137-145); Total Protein 6.6 g/dL (6.3-8.2)
[2025-01-03] MEDS: NICOTINE (*PBKC) 21 MG PATCH 1 PATCH TRANSDERM (08:18)
[2025-01-03] MEDS: APIXABAN 2.5 MG TABLET 10 MG PO ×2 (08:20→20:34)
[2025-01-03] MEDS: guaiFENesin 12 HR 600 MG TABCR 1200 MG PO ×2 (08:20→20:34)
[2025-01-03] MEDS: THIAMINE HCL 100 MG TABLET PO (08:21)
[2025-01-03] MEDS: FOLIC ACID 1 MG TABLET PO (08:21)
[2025-01-03] MEDS: OFLOXACIN 0.3% OPHTH SOLN 5 ML BTL 3 DROP EACH EAR ×4 (09:08→20:34)
[2025-01-03] MEDS: chlordiazePOXIDE (*CRX) 25 MG CAPSULE PO ×2 (12:31→20:35)
[2025-01-03] MEDS: AZITHROMYCIN 250 MG TABLET 500 MG PO (14:18)
--- NOTE | 2025-01-03 14:29 | PCPTNOTE ---
Patient has refused therapy several times this weekend, and today both PT and OT multiple times. As of this note, we will DC her from current PT treatment plan. If she reaches a point where she can commit to being compliant with skilled PT and OT, we will consider re-evaluation and a new POC.
[2025-01-03] MEDS: ACETAMINOPHEN 325 MG TABLET 650 MG PO (17:18)
[2025-01-03] MEDS: cefTRIAXone 2 GM in SODIUM CHLORIDE 0.9% IV 100 ML 200 ML IVPB (20:33)
[2025-01-03] MEDS: LORazepam (*CRX) 1 MG TABLET PO (20:35)
[2025-01-04] VITALS (16 sets, daily range): BP systolic 135–147; BP diastolic 76–80; PULSE 52–108; RESP 24–32; TEMP 36.3–37; O2SAT 91–100
[2025-01-04] MEDS: IPRATROPIUM 0.5 MG/ALBUTEROL SULFATE 2.5 MG (BASE) AMPUL.NEB 3 ML INHALATION ×4 (00:36→17:05)
[2025-01-04 05:54] LABS: Hematocrit 34.2 % (35.0-42.0); Hemoglobin 10.8 g/dL (11.7-13.8); Mean Corpuscular HGB Conc 31.6 g/dL (32-36); Mean Corpuscular Hemoglobin 32.0 pg (27.0-31.0); Mean Corpuscular Volume 101.2 fL (78.0-102.0); Platelet Count Result 156 K/mm3 (150-420); Red Blood Count 3.38 M/mm3 (4.20-5.40); White Blood Count 3.8 K/mm3 (4.8-10.8)
[2025-01-04 06:04] LABS: Alanine Aminotransferase 27 U/L (6-35); Albumin Level 3.2 g/dL (3.5-5.1); Alkaline Phosphatase 60 U/L (38-126); Anion Gap 6 mmol/L (4-12); Aspartate Amino Transferase 24 U/L (14-36); Bilirubin,Total 0.4 mg/dL (0.2-1.3); Blood Urea Nitrogen 29 mg/dL (7-17); Calcium 9.0 mg/dL (8.4-10.2); Carbon Dioxide 32 mmol/L (22-30); Chloride 105 mmol/L (98-107); Estimated CRCL calculation 43 ml/min; Estimated Glomerular Filt Rate 60; Glucose 233 mg/dL (65-110); Osmolality Calculated 308 mOsm/kg (285-295); Potassium 4.4 mmol/L (3.4-5.0); Sodium 143 mmol/L (137-145); Total Protein 5.7 g/dL (6.3-8.2)
[2025-01-04 06:06] LABS: Band Neutrophils Percent 0 % (0-6); Basophils Absolute Manual 0.00 K/mm3 (0-0.1); Basophils Percent Manual 0 % (0-1); Eosinophils Absolute Manual 0.00 K/mm3 (0.02-0.50); Eosinophils Percent Manual 0 % (1-6); Lymphocytes Absolute Manual 0.15 K/mm3 (1.1-4.5); Lymphocytes Percent Manual 4 % (18-44); Monocytes Absolute Manual 0.22 K/mm3 (0.1-0.90); Monocytes Percent Manual 6 % (3-9); Neutrophils Absolute Manual 3.42 K/mm3 (1.3-6.7); Neutrophils Percent Manual 90 % (46-73)
[2025-01-04] MEDS: BENZONATATE 100 MG CAPSULE 200 MG PO ×3 (06:23→22:06)
[2025-01-04] MEDS: NICOTINE (*PBKC) 21 MG PATCH 1 PATCH TRANSDERM (08:23)
[2025-01-04] MEDS: guaiFENesin 12 HR 600 MG TABCR 1200 MG PO ×2 (08:24→20:34)
[2025-01-04] MEDS: APIXABAN 2.5 MG TABLET 10 MG PO ×2 (08:24→20:34)
[2025-01-04] MEDS: FOLIC ACID 1 MG TABLET PO (08:25)
[2025-01-04] MEDS: THIAMINE HCL 100 MG TABLET PO (08:25)
[2025-01-04] MEDS: OFLOXACIN 0.3% OPHTH SOLN 5 ML BTL 3 DROP EACH EAR ×4 (08:25→20:32)
--- NOTE | 2025-01-04 09:44 | P.PNIM_ITS ---
Progress Note: A&P Assessment and Plan (1) Pulmonary embolism: Code(s): I26.99 - Other pulmonary embolism without acute cor pulmonale Status: Acute Assessment and Plan: patient with hypoxia and dyspnea per patients daughter patient was recently dx with a PE but didn't complete treatment with anticoagulation CT PE protocol showed acute pulomary embolism Continue Eliquis 10 mg PO BID x 7 days followed by 5 mg PO BID oxygen by [facility] monitor respiratory status PT/OT (2) Acute hypoxic respiratory failure: Code(s): J96.01 - Acute respiratory failure with hypoxia Status: Acute Assessment and Plan: patient requiring o2 by [place] titrate to keep O2 sats > 92% CT PE protocol neb treatments ordered if patient will need O2 on discharge will need to obtain ambulatory o2 study prior to discharge (3) Hypokalemia: Code(s): E87.6 - Hypokalemia Status: Acute Assessment and Plan: s/p IV KCL k level improved AM labs (4) Generalized weakness: Code(s): R53.1 - Weakness Status: Acute Assessment and Plan: patient reported to CM she uses a walker at baseline but it is broken PT/OT fall precautions CM working to find placement for patient (5) ACACIA (acute kidney injury): Code(s): N17.9 - Acute kidney failure, unspecified Status: Acute Assessment and Plan: s/p IV fluids creatinine improved AM labs (6) Alcohol intoxication: Code(s): F10.929 - Alcohol use, unspecified with intoxication, unspecified Status: Acute Assessment and Plan: ethanol level > 300 on admission patient will not report how much she drinks daily per daughter patient drinks both hard liquor and beer, but she is unable to quantify the amount reports patient goes through withdrawals frequently when she runs out of money daughter reports withdrawal symptoms include shakiness, nausea, vomiting and confusion, denies seizure activity CIWA initiated PRN Librium seizure precautions ethanol level < 10 on 12/30 withdrawal symptoms included tremors, nausea and anxiety CIWA scores low, will d/c CIWA protocol encourage cessation of drinking (7) Smoking: Code(s): F17.200 - Nicotine dependence, unspecified, uncomplicated Status: Acute Assessment and Plan: per chart patient smokes 2 PPD patient unable to tell me what she currently smokes nicotine patch ordered encourage cessation (8) COPD exacerbation: Code(s): J44.1 - Chronic obstructive pulmonary disease with (acute) exacerbation Status: Acute Assessment and Plan: 01/01 patients wheezing is less today on exam, still with rales in right lung patient with worsening cough, dyspnea not improving, still with pursed lip br eathing IV solu-medrol change to PO prednisone 01/02 IV azithromycin change to PO on 01/01 continue duo-nebs continue o2 by [place] monitor for improvement Subjective Date/time seen: 01/03/25 09:44 Interval history: Late Entry Patient was seen for a follow up visit. Patient was lying in bed, in no signs of distress. Patient is wearing o2 by [facility]. Patient still with a cough, mildly productive. Patient continues on PO azithromycin and PO steroids. CM has been working to place patient in SNF with transition to NH status. Now patient is saying she does not want to go to a residential. Patient is agreeable to SNF but wants certain facilities. Patient is tolerating her diet. Patient is working with PT/OT at times. Review of Systems Review of Systems: All systems reviewed & are unremarkable except as noted in HPI and below Exam Const: General: no acute distress Other: pursed lip breathing at times during visit HENMT: Face/Nose/Sinus: Normal nares present Mouth: Yes moist mucous membranes Eyes: General: appearance normal, both eyes and all related structures Sclera: sclerae normal Neck: Neck: supple Resp: Auscultation: crackles, rhonchi and diminished lung sounds GI: Auscultation: normal bowel sounds Skin: General skin exam: normal color and no rashes or lesions noted Neuro: Speech: normal speech Motor exam (neuro): Normal motor muscle tone present throughout Other: oriented to person and place, disoriented to time Extrem: General: normal to inspection Psych: Attitude: Belligerent attititude/behavior present Other: at times Objective Data Vital Signs Vital Signs: Vital Signs - 24 hr 01/03/25 11:33 01/03/25 11:37 01/03/25 16:00 Temperature 97.7 F Pulse Rate 110 H 106 H 103 H Pulse Rate [Left Monitor] Respiratory Rate 28 H 32 H 28 H Blood Pressure 131/76 Pulse Oximetry 97 98 95 Oxygen Delivery Nasal Cannula Oxygen Flow Rate 2.5 2.5 2 01/03/25 17:25 01/03/25 17:31 01/03/25 20:00 Temperature Pulse Rate 101 H 82 Pulse Rate [Left Monitor] 108 H Respiratory Rate 28 H 24 H Blood Pressure Pulse Oximetry 91 100 Oxygen Delivery Oxygen Flow Rate 2.5 2.5 01/03/25 20:00 01/04/25 00:00 01/04/25 00:00 Temperature 98.6 F Pulse Rate 107 H 108 H Pulse Rate [Left Monitor] 101 H Respiratory Rate 26 H 28 H Blood Pressure 147/80 H Pulse Oximetry 93 93 Oxygen Delivery Room Air Room Air Oxygen Flow Rate 01/04/25 00:30 01/04/25 00:50 01/04/25 04:00 Temperature Pulse Rate 101 H 105 H Pulse Rate [Left Monitor] 101 H Respiratory Rate 24 H 26 H Blood Pressure Pulse Oximetry 96 100 Oxygen Delivery Oxygen Flow Rate 2.5 2.5 01/04/25 05:48 01/04/25 06:11 01/04/25 08:00 Temperature Pulse Rate 90 88 Pulse Rate [Left Monitor] 100 Respiratory Rate 24 H 24 H Blood Pressure Pulse Oximetry 97 98 Oxygen Delivery Oxygen Flow Rate 2 2 01/04/25 08:00 Temperature 97.4 F L Pulse Rate 100 Pulse Rate [Left Monitor] Respiratory Rate 24 H Blood Pressure 135/76 Pulse Oximetry 93 Oxygen Delivery Nasal Cannula Oxygen Flow Rate 2 Intake/Output Intake/Output: Intake & Output 01/01/25 01/02/25 01/03/25 01/04/25 23:59 23:59 23:59 23:59 Intake Total 2470 2520 2310 1640 Balance 2470 2520 2310 1640 Meds/Results Medications: Active Medications Generic Name Dose Route Start Last Admin Trade Name Freq PRN Reason Stop Dose Admin Acetaminophen 650 mg 12/29/24 18:32 01/03/25 17:18 Acetaminophen 325 Mg Tablet PO 650 mg Q4H PRN Administration Mild Pain (1-3) or Fever Albuterol/Ipratropium 3 ml 12/30/24 18:30 01/04/25 05:47 Ipratropium 0.5 Mg/Albuterol Sulfate 2.5 Mg (Base) Ampul.Neb 3 Ml INHALATION 3 ml Q6HRT PORSHCE Administration Apixaban 10 mg 12/30/24 21:00 01/04/25 08:24 Apixaban 2.5 Mg Tablet PO 01/06/25 20:59 10 mg Q12HR PORSCHE Administration Apixaban 5 mg 01/06/25 21:00 Apixaban 2.5 Mg Tablet PO Q12HR PORSCHE Azithromycin 500 mg 01/01/25 14:00 01/03/25 14:18 Azithromycin 250 Mg Tablet PO 500 mg Q24H PORSCHE Administration Benzonatate 200 mg 01/02/25 22:00 01/04/25 06:23 Benzonatate 100 Mg Capsule PO 200 mg Q8HR PORSCHE Administration Chlordiazepoxide HCl 25 mg 12/30/24 12:17 01/03/25 20:35 Chlordiazepoxide (*Crx) 25 Mg Capsule PO 25 mg Q6H PRN Administration Withdrawal Folic Acid 1 mg 12/30/24 09:00 01/04/25 08:25 Folic Acid 1 Mg Tablet PO 1 mg DAILY PORSCHE Administration Guaifenesin 1,200 mg 12/31/24 21:00 01/04/25 08:24 Guaifenesin 12 Hr 600 Mg Tabcr PO 1,200 mg Q12HR PORSCHE Administration Ceftriaxone Sodium 2 gm/ 100 mls @ 200 mls/hr 01/03/25 21:00 01/03/25 21:05 Sodium Chloride IVPB Infused Q24H PORSCHE Infusion Lorazepam 1 mg 01/01/25 13:02 01/03/25 20:35 Lorazepam (*Crx) 1 Mg Tablet PO 1 mg Q6H PRN Administration Anxiety Methocarbamol 500 mg 01/02/25 15:07 01/02/25 17:13 Methocarbamol 500 Mg Tablet PO 500 mg QID PRN Administration Muscle Spasm Methylprednisolone Sodium Succinate 40 mg 01/01/25 09:00 01/04/25 08:20 Methylprednisolone Sod Succ 40 Mg Vial IV PUSH 40 mg DAILY PORSCHE Administration Nicotine 1 patch 12/30/24 14:30 01/04/25 08:23 Nicotine (*Pbkc) 21 Mg Patch TRANSDERM [address] [facility] Administration Ofloxacin 3 drop 12/31/24 13:00 01/04/25 08:25 Ofloxacin 0.3% Ophth Soln 5 Ml Btl EACH EAR 3 drop QID PORSCHE Administration Ondansetron HCl 4 mg 12/29/24 18:32 12/30/24 06:10 Ondansetron Inj 4 Mg/2 Ml Vial IV PUSH 4 mg Q6H PRN Administration Nausea And Vomiting Thiamine HCl 100 mg 12/30/24 09:00 01/04/25 08:25 Thiamine Hcl 100 Mg Tablet PO 100 mg QAM PORSCHE Administration Radiology Results: ITS Impressions Head CT 12/29/24 15:41 Impression: 1.No acute intracranial abnormality. Cervical Spine CT 12/29/24 15:59 Impression: No acute abnormality. Chest CTA 12/30/24 12:40 IMPRESSION: 1. Single pulmonary embolism in a subsegmental pulmonary artery in the lateral basilar segment of the right lower lobe. No associated right heart strain. Venous Doppler Study 01/03/25 08:41 IMPRESSION: 1. No deep venous thrombosis. Chest X-Ray 01/03/25 18:15 Impression: Bilateral pneumonia Labs Labs: Laboratory Results - last 24 hr 01/04/25 05:32 WBC 3.8 L RBC 3.38 L Hgb 10.8 L Hct 34.2 L MCV 101.2 MCH 32.0 H MCHC 31.6 L RDW 16.5 H Plt Count 156 MPV 11.4 Immature Gran % (Auto) Not Reportable Neut % (Auto) Not Reportable Lymph % (Auto) Not Reportable [place] % (Auto) Not Reportable Eos % (Auto) Not Reportable Baso % (Auto) Not Reportable Lymph # (Auto) Not Reportable [place] # (Auto) Not Reportable Eos # (Auto) Not Reportable Baso # (Auto) Not Reportable Abs Immat Gran (auto) Not Reportable Absolute Neuts (auto) Not Reportable Absolute Nucleated RBC Not Reportable Neutrophils % (Manual) 90 H Band Neutrophils % 0 Lymphocytes % (Manual) 4 L Monocytes % (Manual) 6 Eosinophils % (Manual) 0 L Basophils % (Manual) 0 Nucleated RBC % Not Reportable Abs Neuts (Manual) 3.42 Abs Lymphs (Manual) 0.15 L Abs Monocytes (Manual) 0.22 Absolute Eos (Manual) 0.00 L Abs Basophils (Manual) 0.00 Platelet Estimate Adequate Schistocytes Not Reportable Sodium 143 Potassium 4.4 Chloride 105 Carbon Dioxide 32 H Anion Gap 6 BUN 29 H D Creatinine 0.93 Estim Creat Clear Calc 43 Estimated GFR 60 Glucose 233 H Calculated Osmolality 308 H Calcium 9.0 Total Bilirubin 0.4 AST 24 ALT 27 Alkaline Phosphatase 60 Total Protein 5.7 L Albumin 3.2 L Quality VTE Prophylaxis VTE prophylaxis: pharmacologic ordered
[2025-01-04] MEDS: chlordiazePOXIDE (*CRX) 25 MG CAPSULE PO ×3 (09:45→23:15)
--- NOTE | 2025-01-04 10:20 | PC.NURSE ---
left message with speech therapy about eval.
--- NOTE | 2025-01-04 11:47 | P.PNIM_ITS ---
Progress Note: A&P Assessment and Plan (1) Pulmonary embolism: Code(s): I26.99 - Other pulmonary embolism without acute cor pulmonale Status: Acute Assessment and Plan: patient with hypoxia and dyspnea per patients daughter patient was recently dx with a PE but didn't complete treatment with anticoagulation CT PE protocol showed acute pulomary embolism Continue Eliquis 10 mg PO BID x 7 days followed by 5 mg PO BID oxygen by [place] radio adjuster respiratory status PT/OT (2) Acute hypoxic respiratory failure: Code(s): J96.01 - Acute respiratory failure with hypoxia Status: Acute Assessment and Plan: patient requiring o2 by [place] titrate to keep O2 sats > 92% CT PE protocol neb treatments ordered if patient will need O2 on discharge will need to obtain ambulatory o2 study prior to discharge (3) Hypokalemia: Code(s): E87.6 - Hypokalemia Status: Acute Assessment and Plan: s/p IV KCL k level improved AM labs (4) Generalized weakness: Code(s): R53.1 - Weakness Status: Acute Assessment and Plan: patient reported to CM she uses a walker at baseline but it is broken PT/OT fall precautions CM working to find placement for patient (5) ACACIA (acute kidney injury): Code(s): N17.9 - Acute kidney failure, unspecified Status: Acute Assessment and Plan: s/p IV fluids creatinine improved AM labs (6) Alcohol intoxication: Code(s): F10.929 - Alcohol use, unspecified with intoxication, unspecified Status: Acute Assessment and Plan: ethanol level > 300 on admission patient will not report how much she drinks daily per daughter patient drinks both hard liquor and beer, but she is unable to quantify the amount reports patient goes through withdrawals frequently when she runs out of money daughter reports withdrawal symptoms include shakiness, nausea, vomiting and confusion, denies seizure activity CIWA initiated PRN Librium seizure precautions ethanol level < 10 on 12/30 withdrawal symptoms included tremors, nausea and anxiety CIWA scores low, will d/c CIWA protocol encourage cessation of drinking (7) Smoking: Code(s): F17.200 - Nicotine dependence, unspecified, uncomplicated Status: Acute Assessment and Plan: per chart patient smokes 2 PPD patient unable to tell me what she currently smokes nicotine patch ordered encourage cessation (8) COPD exacerbation: Code(s): J44.1 - Chronic obstructive pulmonary disease with (acute) exacerbation Status: Acute Assessment and Plan: 01/01 patients wheezing is less today on exam, still with rales in right lung patient with worsening cough, dyspnea not improving, still with pursed lip br eathing IV solu-medrol change to PO prednisone 01/02 IV azithromycin change to PO on 01/01 continue duo-nebs continue o2 by [place] monitor for improvement (9) Pneumonia: Code(s): J18.9 - Pneumonia, unspecified organism Status: Acute Assessment and Plan: patient had an episode of choking on food chest x-ray showed bilateral pneumonia continue PO azithromycin start IV ceftriaxone obtain MRSA nasal swab obtain sputum culture plan for repeat CXR in a few days AM labs Subjective Date/time seen: 01/04/25 11:47 Interval history: Patient seen for a follow up visit. Patient sitting up in chair, in no acute distress. Nursing notified me yesterday that patient was more tachypnic. Chest x-ray obtained and chest x-ray now shows bilateral pneumonia. Patient started on IV ceftriaxone and will continue PO azithromcyin. Patient taking off her oxygen and reporting she cannot breath with it on. Continue neb treatments. Lung sounds with more air movement today on exam. Patient working with PT/OT at times. Patient with a choking episode with food yesterday, speech therapy consulted to evaluate and treat. Review of Systems Review of Systems: All systems reviewed & are unremarkable except as noted in HPI and below Exam Const: General: no acute distress Other: pursed lip breathing at times during visit HENMT: Face/Nose/Sinus: Normal nares present Mouth: Yes moist mucous membranes Eyes: General: appearance normal, both eyes and all related structures Sclera: sclerae normal Neck: Neck: supple Resp: Auscultation: crackles, rhonchi (more air movement today) and diminished lung sounds GI: Auscultation: normal bowel sounds Skin: General skin exam: normal color and no rashes or lesions noted Neuro: Speech: normal speech Motor exam (neuro): Normal motor muscle tone present throughout Other: oriented to person and place, disoriented to time Extrem: General: normal to inspection Psych: Attitude: Belligerent attititude/behavior present Other: at times Objective Data Vital Signs Vital Signs: Vital Signs - 24 hr 01/03/25 16:00 01/03/25 17:25 01/03/25 17:31 Temperature 97.7 F Pulse Rate 103 H 101 H 82 Pulse Rate [Left Monitor] Pulse Rate [Left Radial] Respiratory Rate 28 H 28 H 24 H Blood Pressure 131/76 Pulse Oximetry 95 91 100 Oxygen Delivery Nasal Cannula Oxygen Flow Rate 2 2.5 2.5 01/03/25 20:00 01/03/25 20:00 01/04/25 00:00 Temperature Pulse Rate 107 H Pulse Rate [Left Monitor] 108 H 101 H Pulse Rate [Left Radial] Respiratory Rate 26 H Blood Pressure Pulse Oximetry 93 Oxygen Delivery Room Air Oxygen Flow Rate 01/04/25 00:00 01/04/25 00:30 01/04/25 00:50 Temperature 98.6 F Pulse Rate 108 H 101 H 105 H Pulse Rate [Left Monitor] Pulse Rate [Left Radial] Respiratory Rate 28 H 24 H 26 H Blood Pressure 147/80 H Pulse Oximetry 93 96 100 Oxygen Delivery Room Air Oxygen Flow Rate 2.5 2.5 01/04/25 04:00 01/04/25 05:48 01/04/25 06:11 Temperature Pulse Rate 90 88 Pulse Rate [Left Monitor] 101 H Pulse Rate [Left Radial] Respiratory Rate 24 H 24 H Blood Pressure Pulse Oximetry 97 98 Oxygen Delivery Oxygen Flow Rate 2 2 01/04/25 08:00 01/04/25 08:00 01/04/25 09:40 Temperature 97.4 F L Pulse Rate 100 Pulse Rate [Left Monitor] 100 Pulse Rate [Left Radial] 104 H Respiratory Rate 24 H Blood Pressure 135/76 Pulse Oximetry 93 Oxygen Delivery Nasal Cannula Oxygen Flow Rate 2 Intake/Output Intake/Output: Intake & Output 01/01/25 01/02/25 01/03/25 01/04/25 23:59 23:59 23:59 23:59 Intake Total 2470 2520 2310 1640 Balance 2470 2520 2310 1640 Meds/Results Medications: Active Medications Generic Name Dose Route Start Last Admin Trade Name Freq PRN Reason Stop Dose Admin Acetaminophen 650 mg 12/29/24 18:32 01/03/25 17:18 Acetaminophen 325 Mg Tablet PO 650 mg Q4H PRN Administration Mild Pain (1-3) or Fever Albuterol/Ipratropium 3 ml 12/30/24 18:30 01/04/25 11:45 Ipratropium 0.5 Mg/Albuterol Sulfate 2.5 Mg (Base) Ampul.Neb 3 Ml INHALATION 3 ml Q6HRT PORSCHE Administration Apixaban 10 mg 12/30/24 21:00 01/04/25 08:24 Apixaban 2.5 Mg Tablet PO 01/06/25 20:59 10 mg Q12HR P[facility]SCHE Administration Apixaban 5 mg 01/06/25 21:00 Apixaban 2.5 Mg Tablet PO Q12HR P[facility]SCHE Azithromycin 500 mg 01/01/25 14:00 01/03/25 14:18 Azithromycin 250 Mg Tablet PO 500 mg Q24H [facility]HE Administration Benzonatate 200 mg 01/02/25 22:00 01/04/25 06:23 Benzonatate 100 Mg Capsule PO 200 mg Q8HR [facility] Administration Chlordiazepoxide HCl 25 mg 12/30/24 12:17 01/04/25 09:45 Chlordiazepoxide (*Crx) 25 Mg Capsule PO 25 mg Q6H PRN Administration Withdrawal Folic Acid 1 mg 12/30/24 09:00 01/04/25 08:25 Folic Acid 1 Mg Tablet PO 1 mg DAILY [facility] Administration Guaifenesin 1,200 mg 12/31/24 21:00 01/04/25 08:24 Guaifenesin 12 Hr 600 Mg Tabcr PO 1,200 mg Q12HR P[facility]SCHE Administration Ceftriaxone Sodium 2 gm/ 100 mls @ 200 mls/hr 01/03/25 21:00 01/03/25 21:05 Sodium Chloride IVPB Infused Q24H P[facility] Infusion Lorazepam 1 mg 01/01/25 13:02 01/03/25 20:35 Lorazepam (*Crx) 1 Mg Tablet PO 1 mg Q6H PRN Administration Anxiety Methocarbamol 500 mg 01/02/25 15:07 01/02/25 17:13 Methocarbamol 500 Mg Tablet PO 500 mg QID PRN Administration Muscle Spasm Methylprednisolone Sodium Succinate 40 mg 01/01/25 09:00 01/04/25 08:20 Methylprednisolone Sod Succ 40 Mg Vial IV PUSH 40 mg DAILY [facility] Administration Nicotine 1 patch 12/30/24 14:30 01/04/25 08:23 Nicotine (*Pbkc) 21 Mg Patch TRANSDERM 1 patch DAILY [facility] Administration Ofloxacin 3 drop 12/31/24 13:00 01/04/25 08:25 Ofloxacin 0.3% Ophth Soln 5 Ml Btl EACH EAR 3 drop QID P[facility]HE Administration Ondansetron HCl 4 mg 12/29/24 18:32 12/30/24 06:10 Ondansetron Inj 4 Mg/2 Ml Vial IV PUSH 4 mg Q6H PRN Administration Nausea And Vomiting Thiamine HCl 100 mg 12/30/24 09:00 01/04/25 08:25 Thiamine Hcl 100 Mg Tablet PO 100 mg QAM P[facility]SCHE Administration Radiology Results: ITS Impressions Head CT 12/29/24 15:41 Impression: 1.No acute intracranial abnormality. Cervical Spine CT 12/29/24 15:59 Impression: No acute abnormality. Chest CTA 12/30/24 12:40 IMPRESSION: 1. Single pulmonary embolism in a subsegmental pulmonary artery in the lateral basilar segment of the right lower lobe. No associated right heart strain. Venous Doppler Study 01/03/25 08:41 IMPRESSION: 1. No deep venous thrombosis. Chest X-Ray 01/03/25 18:15 Impression: Bilateral pneumonia Labs Labs: Laboratory Results - last 24 hr 01/04/25 05:32 WBC 3.8 L RBC 3.38 L Hgb 10.8 L Hct 34.2 L MCV 101.2 MCH 32.0 H MCHC 31.6 L RDW 16.5 H Plt Count 156 MPV 11.4 Immature Gran % (Auto) Not Reportable Neut % (Auto) Not Reportable Lymph % (Auto) Not Reportable Stone % (Auto) Not Reportable Eos % (Auto) Not Reportable Baso % (Auto) Not Reportable Lymph # (Auto) Not Reportable [place] # (Auto) Not Reportable Eos # (Auto) Not Reportable Baso # (Auto) Not Reportable Abs Immat Gran (auto) Not Reportable Absolute Neuts (auto) Not Reportable Absolute Nucleated RBC Not Reportable Neutrophils % (Manual) 90 H Band Neutrophils % 0 Lymphocytes % (Manual) 4 L Monocytes % (Manual) 6 Eosinophils % (Manual) 0 L Basophils % (Manual) 0 Nucleated RBC % Not Reportable Abs Neuts (Manual) 3.42 Abs Lymphs (Manual) 0.15 L Abs Monocytes (Manual) 0.22 Absolute Eos (Manual) 0.00 L Abs Basophils (Manual) 0.00 Platelet Estimate Adequate Schistocytes Not Reportable Sodium 143 Potassium 4.4 Chloride 105 Carbon Dioxide 32 H Anion Gap 6 BUN 29 H D Creatinine 0.93 Estim Creat Clear Calc 43 Estimated GFR 60 Glucose 233 H Calculated Osmolality 308 H Calcium 9.0 Total Bilirubin 0.4 AST 24 ALT 27 Alkaline Phosphatase 60 Total Protein 5.7 L Albumin 3.2 L Quality VTE Prophylaxis VTE prophylaxis: pharmacologic ordered
[2025-01-04] MEDS: ACETAMINOPHEN 325 MG TABLET 650 MG PO (13:15)
[2025-01-04] MEDS: AZITHROMYCIN 250 MG TABLET 500 MG PO (13:16)
[2025-01-04 17:37] LABS: MRSA (PCR) NOT DETECTED (NOT DETECTE)
[2025-01-04] MEDS: cefTRIAXone 2 GM in SODIUM CHLORIDE 0.9% IV 100 ML 200 ML IVPB (20:32)
[2025-01-04] MEDS: LORazepam (*CRX) 1 MG TABLET PO (22:06)
[2025-01-05] VITALS (12 sets, daily range): BP systolic 136–155; BP diastolic 67–95; PULSE 84–106; RESP 14–28; TEMP 36.4–37.1; O2SAT 91–100
[2025-01-05 05:40] LABS: Hematocrit 39.7 % (35.0-42.0); Hemoglobin 12.4 g/dL (11.7-13.8); Immature Granulocyte Percent A 1.7 % (0.0-0.0); Lymphocytes Absolute Auto 0.68 K/mm3 (1.10-4.50); Mean Corpuscular HGB Conc 31.2 g/dL (32-36); Mean Corpuscular Hemoglobin 31.6 pg (27.0-31.0); Mean Corpuscular Volume 101.3 fL (78.0-102.0); Nucleated Red Blood Cells Absolute Auto 0.00 K/mm3 (0.00-0.00); Nucleated Red Blood Cells Perc 0.0 % (0-0.0); Platelet Count Result 238 K/mm3 (150-420); Red Blood Count 3.92 M/mm3 (4.20-5.40); White Blood Count 5.7 K/mm3 (4.8-10.8)
[2025-01-05] MEDS: BENZONATATE 100 MG CAPSULE 200 MG PO ×3 (05:41→21:07)
[2025-01-05] MEDS: IPRATROPIUM 0.5 MG/ALBUTEROL SULFATE 2.5 MG (BASE) AMPUL.NEB 3 ML INHALATION ×3 (05:42→17:21)
[2025-01-05 06:08] LABS: Alanine Aminotransferase 30 U/L (6-35); Albumin Level 3.6 g/dL (3.5-5.1); Alkaline Phosphatase 68 U/L (38-126); Anion Gap 8 mmol/L (4-12); Aspartate Amino Transferase 33 U/L (14-36); Bilirubin,Total 0.4 mg/dL (0.2-1.3); Blood Urea Nitrogen 39 mg/dL (7-17); Calcium 9.6 mg/dL (8.4-10.2); Carbon Dioxide 31 mmol/L (22-30); Chloride 103 mmol/L (98-107); Estimated CRCL calculation 41 ml/min; Estimated Glomerular Filt Rate 58; Glucose 145 mg/dL (65-110); Osmolality Calculated 306 mOsm/kg (285-295); Potassium 4.4 mmol/L (3.4-5.0); Sodium 142 mmol/L (137-145); Total Protein 6.5 g/dL (6.3-8.2)
--- NOTE | 2025-01-05 06:15 | PC.NURSE ---
Pt asleep and no signs of agitation or discomfort noted.
[2025-01-05] MEDS: guaiFENesin 12 HR 600 MG TABCR 1200 MG PO ×2 (09:34→21:07)
[2025-01-05] MEDS: ACETAMINOPHEN 325 MG TABLET 650 MG PO (09:35)
[2025-01-05] MEDS: APIXABAN 2.5 MG TABLET 10 MG PO ×2 (09:35→21:07)
[2025-01-05] MEDS: FOLIC ACID 1 MG TABLET PO (09:35)
[2025-01-05] MEDS: THIAMINE HCL 100 MG TABLET PO (09:35)
[2025-01-05] MEDS: chlordiazePOXIDE (*CRX) 25 MG CAPSULE PO ×2 (09:35→17:12)
[2025-01-05] MEDS: OFLOXACIN 0.3% OPHTH SOLN 5 ML BTL 3 DROP EACH EAR ×4 (09:36→21:07)
[2025-01-05] MEDS: AZITHROMYCIN 250 MG TABLET 500 MG PO (14:11)
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
[2025-01-06] VITALS (8 sets, daily range): BP systolic 140–160; BP diastolic 86–98; PULSE 90–107; RESP 18–24; TEMP 36.4–37.1; O2SAT 88–95
[2025-01-06] MEDS: IPRATROPIUM 0.5 MG/ALBUTEROL SULFATE 2.5 MG (BASE) AMPUL.NEB 3 ML INHALATION ×3 (00:45→18:01)
[2025-01-06] MEDS: BENZONATATE 100 MG CAPSULE 200 MG PO ×3 (05:39→21:09)
[2025-01-06 05:53] LABS: Hematocrit 33.1 % (35.0-42.0); Hemoglobin 10.5 g/dL (11.7-13.8); Mean Corpuscular HGB Conc 31.7 g/dL (32-36); Mean Corpuscular Hemoglobin 31.6 pg (27.0-31.0); Mean Corpuscular Volume 99.7 fL (78.0-102.0); Platelet Count Result 224 K/mm3 (150-420); Red Blood Count 3.32 M/mm3 (4.20-5.40); White Blood Count 3.8 K/mm3 (4.8-10.8)
[2025-01-06 06:06] LABS: Alanine Aminotransferase 24 U/L (6-35); Albumin Level 3.0 g/dL (3.5-5.1); Alkaline Phosphatase 55 U/L (38-126); Anion Gap 6 mmol/L (4-12); Aspartate Amino Transferase 21 U/L (14-36); Bilirubin,Total 0.3 mg/dL (0.2-1.3); Blood Urea Nitrogen 42 mg/dL (7-17); Calcium 9.2 mg/dL (8.4-10.2); Carbon Dioxide 29 mmol/L (22-30); Chloride 107 mmol/L (98-107); Estimated CRCL calculation 43 ml/min; Estimated Glomerular Filt Rate > 60; Glucose 159 mg/dL (65-110); Magnesium 1.8 mg/dL (1.6-2.3); Osmolality Calculated 307 mOsm/kg (285-295); Potassium 4.4 mmol/L (3.4-5.0); Sodium 142 mmol/L (137-145); Total Protein 5.1 g/dL (6.3-8.2)
[2025-01-06] MEDS: APIXABAN 2.5 MG TABLET 10 MG PO (08:48)
[2025-01-06] MEDS: guaiFENesin 12 HR 600 MG TABCR 1200 MG PO ×2 (08:49→21:09)
[2025-01-06] MEDS: FOLIC ACID 1 MG TABLET PO (08:49)
[2025-01-06] MEDS: THIAMINE HCL 100 MG TABLET PO (08:49)
[2025-01-06] MEDS: OFLOXACIN 0.3% OPHTH SOLN 5 ML BTL 3 DROP EACH EAR ×4 (08:49→21:09)
[2025-01-06] MEDS: NICOTINE (*PBKC) 21 MG PATCH 1 PATCH TRANSDERM (08:51)
[2025-01-06] MEDS: MULTIVITAMINS THERAPEUTIC TAB (*BKC) 1 TABLET PO (10:21)
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
[2025-01-06] MEDS: AZITHROMYCIN 250 MG TABLET 500 MG PO (15:13)
[2025-01-06] MEDS: APIXABAN 2.5 MG TABLET 5 MG PO (21:09)
[2025-01-06] MEDS: chlordiazePOXIDE (*CRX) 25 MG CAPSULE PO (21:09)
[2025-01-07] MEDS: IPRATROPIUM 0.5 MG/ALBUTEROL SULFATE 2.5 MG (BASE) AMPUL.NEB 3 ML INHALATION ×3 (01:17→11:27)
[2025-01-07 04:00] VITALS: BP 140/68; PULSE 80
[2025-01-07 05:42] LABS: Hematocrit 32.9 % (35.0-42.0); Hemoglobin 10.2 g/dL (11.7-13.8); Mean Corpuscular HGB Conc 31.0 g/dL (32-36); Mean Corpuscular Hemoglobin 31.3 pg (27.0-31.0); Mean Corpuscular Volume 100.9 fL (78.0-102.0); Platelet Count Result 203 K/mm3 (150-420); Red Blood Count 3.26 M/mm3 (4.20-5.40); White Blood Count 4.0 K/mm3 (4.8-10.8)
[2025-01-07 05:54] VITALS: PULSE 80; RESP 20; O2SAT 90
[2025-01-07 06:00] LABS: Alanine Aminotransferase 37 U/L (6-35); Albumin Level 2.9 g/dL (3.5-5.1); Alkaline Phosphatase 53 U/L (38-126); Anion Gap 3 mmol/L (4-12); Aspartate Amino Transferase 38 U/L (14-36); Bilirubin,Total 0.4 mg/dL (0.2-1.3); Blood Urea Nitrogen 41 mg/dL (7-17); Calcium 9.0 mg/dL (8.4-10.2); Carbon Dioxide 32 mmol/L (22-30); Chloride 107 mmol/L (98-107); Estimated CRCL calculation 41 ml/min; Estimated Glomerular Filt Rate 57; Glucose 98 mg/dL (65-110); Magnesium 1.8 mg/dL (1.6-2.3); Osmolality Calculated 304 mOsm/kg (285-295); Potassium 4.1 mmol/L (3.4-5.0); Sodium 142 mmol/L (137-145); Total Protein 5.1 g/dL (6.3-8.2)
[2025-01-07 06:09] VITALS: PULSE 79; RESP 20; O2SAT 93
[2025-01-07] MEDS: BENZONATATE 100 MG CAPSULE 200 MG PO ×2 (06:09→13:13)
[2025-01-07 08:00] VITALS: BP 149/85; PULSE 95; RESP 18; TEMP 36; O2SAT 89
[2025-01-07] MEDS: NICOTINE (*PBKC) 21 MG PATCH 1 PATCH TRANSDERM (08:52)
[2025-01-07] MEDS: MULTIVITAMINS THERAPEUTIC TAB (*BKC) 1 TABLET PO (08:52)
[2025-01-07] MEDS: APIXABAN 2.5 MG TABLET 5 MG PO (08:52)
[2025-01-07] MEDS: FOLIC ACID 1 MG TABLET PO (08:53)
[2025-01-07] MEDS: OFLOXACIN 0.3% OPHTH SOLN 5 ML BTL 3 DROP EACH EAR (08:53)
[2025-01-07] MEDS: guaiFENesin 12 HR 600 MG TABCR 1200 MG PO (08:53)
[2025-01-07] MEDS: THIAMINE HCL 100 MG TABLET PO (08:53)
[2025-01-07] MEDS: ACETAMINOPHEN 325 MG TABLET 650 MG PO (09:32)
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
[2025-01-07 11:28] VITALS: PULSE 99; RESP 28; O2SAT 92
[2025-01-07 11:36] VITALS: PULSE 94; RESP 28; O2SAT 93
--- NOTE | 2025-01-07 12:45 | PC.NURSE ---
Called [facility], gave verbal report to Robert. Robert has no questions at this time and 2nd floor phone number given for further questions.
[2025-01-07] MEDS: AZITHROMYCIN 250 MG TABLET 500 MG PO (13:13)
--- NOTE | 2025-01-07 13:43 | PC.NURSE ---
1325 Patient discharged to [facility]. augter and son here to transport patient to destination. All discharge instruction given, Discharge instruction signed by patient, with understanding family needs to escort her to her [facility] for strengthening to get her stronger to go home. All parties voiced understanding. Patient leaves faciltiy via WC to family vehicle in route to [place].
--- NOTE | 2025-01-10 10:40 | PC.NURSE ---
Unable to complete f/u phone call, pt d/c to SNF.
== END 2025-01-07 13:25 | DRG 175 ==
LOC: CHSED 15:13 → CHS2ND 16:53
PROVIDERS: Nurse Practitioner Adult Health; Nurse Practitioner Family; Admitting Provider Internal Medicine; Emergency Provider Emergency Medicine; Visit Provider Internal Medicine
DX: I26.99 Other pulmonary embolism without acute cor pulmonale (principal); J18.9 Pneumonia, unspecified organism; J96.01 Acute respiratory failure with hypoxia; Z59.12 Inadequate housing utilities; N17.9 Acute kidney failure, unspecified; J44.1 Chronic obstructive pulmonary disease with (acute) exacerbation; J44.0 Chronic obstructive pulmonary disease with (acute) lower respiratory infection; Y90.8 Blood alcohol level of 240 mg/100 ml or more; E87.6 Hypokalemia; F41.9 Anxiety disorder, unspecified; F17.210 Nicotine dependence, cigarettes, uncomplicated; F10.129 Alcohol abuse with intoxication, unspecified; R53.1 Weakness; R29.6 Repeated falls; Z88.0 Allergy status to penicillin
CPT/HCPCS: 36415; 70450; 71046; 71275; 72125; 80053; 80307; 81001; 82077; 82948; 83605; 83735; 84484; 85025; 85027; 85055; 87070; 87077; 87186; 87205; 87641; 92526; 92610; 93005; 93970; 94640; 96361; 96365; 96366; 96375; 96376; 97161; 97165; 97530; 99285; A9270; G0378; J0456; J0696; J2405; J2919; J3411; J3480; J7030; J7050; J7512; Q9967

== ENCOUNTER 2025-01-30 08:51 | Emergency (ER) | payer MEDICARE, SELFPAY ==
[2025-01-30 08:51] VITALS: BP 182/93; PULSE 107; RESP 20; TEMP 37.3; O2SAT 93
--- NOTE | 2025-01-30 08:59 | ED_ITS ---
HPI - Ear Problem General Chief complaint: Ear Stated complaint: right ear problems Time Seen by Provider: 01/30/25 08:59 Source: patient and family Mode of arrival: ambulatory Limitations: no limitations History of Present Illness HPI Narrative: Patient is a 69-year-old female with right ear congestion over the past few days. Patient tried [id number] wax removal but that was not successful. Patient is having pain in the right ear as well. Patient is also having bladder spasms and she uses Flexeril and would like a refill of this medication today as well. MD Complaint: ear pain, ear discharge (wax) and decreased hearing Location: right ear Duration: constant Severity: moderate Relieving factors: nothing Exacerbating factors: nothing Context: Reports other (Patient has right ear congestion and decreased hearing over the past few days and failed outpatient trial of wax removal) Discharge from ear: Reports yes - clear Associated symptoms ear: decreased hearing and external ear tenderness Treatment prior to arrival: attempt at ear wax removal Related Data Allergies Allergy/AdvReac Type Severity Reaction Status Date / Time Penicillins Allergy Unknown Verified 06/14/22 21:06 Review of Systems Review of Systems: All systems reviewed & are unremarkable except as noted in HPI and below Constitutional: Constitutional: Reports no additional constitutional compla ints Eyes: Eyes: Reports no additional eye complaints ENT: Reports system reviewed and no additional complaints, except as documented Cardiovascular: Cardiovascular: Reports no additional cardiovascular complaints Respiratory: Respiratory: Reports no additional respiratory complaints Gastrointestinal: Gastrointestinal: Reports no additional gastrointestinal complaints Genitourinary: Genitourinary: Reports no additional female genitourinary complaints Musculoskeletal: Musculoskeletal: Reports no additional musculoskeletal complaints Integumentary/Breasts: Skin/Breast: Reports system reviewed and no additional complaints, except as docu Neurologic: Reports system reviewed and no additional complaints, except as documented Psychiatric: Psychiatric: Reports no additional psychiatric complaints Endocrine: Endocrine: Reports no additional endocrine complaints Hematologic/Lymphatic: Hematologic/Lymphatic: Reports no additional hematologic/lymphatic complaints Allergic/Immunologic: Allergic/Immunologic: Reports no additional allergic/immunologic complaints PMFSH Past Medical History Medical History Smoking Falls Social anxiety disorder Viral respiratory illness Acute kidney failure COVID-19 Family History Family History Mother Colon cancer Father Heart disease Sibling Diabetes mellitus Heart disease Sibling Heart disease Sibling Diabetes mellitus Heart disease Sibling Heart disease Social History Social History Smoking packs per day: 2 Smoking cigarettes per day: 40.0 Years smoked: 51 Smoking pack-years: 102.00 Smoking status: Current every day smoker Tobacco type: cigarettes Second hand tobacco smoke exposure: Yes (family members smoke in front of her) Additional smoking assessment comments: states recently slowed down as she felt ill Alcohol intake: current Substance use: never Substance use type: does not use Lack of Transportation: YES Lack of Food: Often True Current Housing: I Have Housing Concerned About Future Housing: No Difficulty Paying Gas/Electric Bills: No Difficulty Paying for Meds: No Currently Unemployed: No Education: Grade School Difficulty w/ Childcare or Family Care: No Spiritual care concerns: No Exam Const: General: healthy appearing Nutritional Appearance: well nourished Orientation/consciousness: patient oriented x3 HENMT: Head: normal to inspection Ears: external ears normal Face/Nose/Sinus: Normal external nose present Other: Right ear is tender to palpate and external canal is red and inflamed with wax buildup seen in the canal; unable to see the TM; left ear is normal Eyes: Conjunctivae: conjunctivae normal Pupils: Equal, round and reactive pupils present EOM: EOMs intact bilaterally Neck: Neck: normal visual inspection Chest: Chest palpation & inspection: normal inspection of the chest Resp: Effort & Inspection: normal respiratory effort and not labored Auscultation: clear to auscultation bilaterally and no crackles Cardio: Rate: regular rate Rhythm: regular rhythm Heart sounds: no murmurs GI: Inspection: non-distended Auscultation: normal bowel sounds : General: Yes bladder normal to palpation Back/Spine/Pelvis: Back: no CVA tenderness Skin: General skin exam: normal color Rashes: no rashes Wounds: no wounds Neuro: General: patient oriented x3, moves all extremities and no meningeal signs Extrem: General: normal to inspection, no clubbing, cyanosis or edema and no pedal edema Psych: Mental Status: mental status grossly normal Affect: normal affect Attitude: cooperative Course Vital Signs Vital signs: Vital Signs Temperature 37.3 C 01/30/25 08:51 Pulse Rate 107 H 01/30/25 08:51 Respiratory Rate 20 01/30/25 08:51 Blood Pressure 182/93 H 01/30/25 08:51 Pulse Oximetry 93 01/30/25 08:51 Oxygen Delivery Room Air 01/30/25 08:51 Temperature 37.3 C 01/30/25 08:51 Pulse Rate 107 H 01/30/25 08:51 Respiratory Rate 20 01/30/25 08:51 Blood Pressure 182/93 H 01/30/25 08:51 Pulse Oximetry 93 01/30/25 08:51 Oxygen Delivery Room Air 01/30/25 08:51 Procedures Ear Wax Removal Right Ear: Ear Wax Removal Date: 01/30/25 Ear Wax Removal Time: 10:39 Cerumenolytic Used: other (Angiocath 20 gauge with saline flush times 3) Results: Re-examined: some cerumen remains (Central clearing to be able to see the tympanic membrane) TM Examination: TM(s) intact, normal appearance Ear Canal Exam: atraumatic (Red external auditory canal prior to procedure) Patient Tolerated Procedure: well Complications: no problems Technique: ear canal irrigated and ear canal curetted Medical Decision Making MDM Narrative Medical decision making narrative: Patient is a 69-year-old female with right ear congestion and wax as well as needing some refill of medications. We will remove the ears cerumen and treat the infection of the canal. Patient needs refill of her Flexeril and albuterol inhaler. She also needs and ear antibiotic and she wanted a refill of nausea medicine. She understands she needs to see a primary doctor. Vital Signs Vital Signs: Vital Signs Temperature 37.3 C 01/30/25 08:51 Pulse Rate 107 H 01/30/25 08:51 Respiratory Rate 20 01/30/25 08:51 Blood Pressure 182/93 H 01/30/25 08:51 Pulse Oximetry 93 01/30/25 08:51 Oxygen Delivery Room Air 01/30/25 08:51 Temperature 37.3 C 01/30/25 08:51 Pulse Rate 107 H 01/30/25 08:51 Respiratory Rate 20 01/30/25 08:51 Blood Pressure 182/93 H 01/30/25 08:51 Pulse Oximetry 93 01/30/25 08:51 Oxygen Delivery Room Air 01/30/25 08:51 Discharge Plan Discharge Clinical Impression: Medication refill Otitis externa Qualifiers: Otitis externa type: unspecified type Chronicity: acute Laterality: right Qualified Code(s): H60.501 - Unspecified acute noninfective otitis externa, right ear Impacted cerumen Qualifiers: Laterality: right Qualified Code(s): H61.21 - Impacted cerumen, right ear Patient Disposition: Home Condition: Stable Instructions: Antibiotic Form Patient Language: Citizen Of [place] Prescriptions: New uqyvfoiu-yifckuxns-UY 3.5-10,000-1 mg/mL-unit/mL-% drops,suspension 3 drp RIGHT EAR Q8H 7 Days Qty: 10 0RF cyclobenzaprine 5 mg tablet 5 mg PO Q8H PRN (Reason: muscle spasm) Qty: 20 0RF albuterol sulfate [Ventolin HFA] 90 mcg/actuation HFA aerosol inhaler 2 inh inhalation QID PRN (Reason: shortness of breath or wheezing) Qty: 6.7 0RF ondansetron 4 mg tablet,disintegrating 4 mg PO Q6H PRN (Reason: nausea and vomiting) Qty: 20 0RF No Action albuterol sulfate 90 mcg/actuation HFA aerosol inhaler 2 puff INHALATION QID PRN (Reason: Shortness Of Breath) Qty: 8.5 0RF benzonatate 100 mg Capsule 200 mg PO Q8HR Qty: 30 0RF folic acid 1 mg Tablet 1 mg PO DAILY Qty: 30 0RF guaifenesin [Mucus Relief ER] 600 mg Tablet Extended Release 12hr 1,200 mg PO Q12HR Qty: 60 0RF methocarbamol 500 mg Tablet 500 mg PO QID PRN (Reason: Muscle Spasm) Qty: 30 0RF ipratropium-albuterol 0.5 mg-3 mg(2.5 mg base)/3 mL Solution For Nebulization 3 ml inhalation Q6HRT PRN (Reason: wheezing) Qty: 180 0RF multivitamin with folic acid [Thera] 400 mcg Tablet 1 tablet PO QAM Qty: 30 0RF nicotine [Nicoderm CQ] 21 mg/24 hr Patch 24 Hour 1 patch transdermal DAILY Qty: 28 0RF ofloxacin [Ocuflox] 0.3 % Drops 3 drp EACH EAR QID Qty: 5 0RF thiamine HCl (vitamin B1) [Vitamin B-1] 100 mg Tablet 100 mg PO QAM Qty: 30 0RF Eliquis 5 mg tablet 5 mg PO BID Qty: 60 0RF Follow-up/Referrals: UNKNOWN,DOCTOR [Non-Staff] Time of Disposition: 10:37
--- OUTSIDE RECORDS SUMMARY | 2025-01-30 08:59 | XMS_ITS ---
Author Organization Unknown Address [address] [place] [phone] Phone Care Team Providers Care Embedded Software Programmer Name Role Phone VIJAIME ANGULOESH Attending Unavailable WOLF MCGILL Primary Unavailable Immunization Immunization Date Status Additional Notes Code Code System pneumococcal polysaccharide PPV23 06/13/2012 Completed 33 CVX Hep A-Hep B 05/18/2003 Completed 104 CVX Tdap 02/12/2019 Completed 115 CVX Influenza, split virus, trivalent, preservative 06/13/2012 Completed 141 CVX Influenza, split virus, trivalent, preservative 02/21/2014 Completed 141 CVX Social History Type Status Start Date End Date Code Code Syst em Smoking History Never smoker (Never Smoked) 932339774 SNOMED CT Sex Female Hospital Discharge Instructions Should you have any questions prior to discharge, please contact a member of your healthcare team. If you have left the hospital and have any questions, please contact your primary care physician. Reason For Referral No Data Found Allergies and Adverse Reactions Allergy Substance Reaction Severity Start Date Concern Status Co de Code System PENICILLINS (CLASS) Swelling (SNOMED-CT: 99128717) Active 30195 RxNorm AMOXICILLIN Swelling (SNOMED-CT: 53742953) Active 723 RxNorm Plan of Treatment No Data Found Encounters Encounter Diagnosis Start Date Code Code Sys tem Alcohol abuse with intoxication, unspecified 5 SNOMED-CT Personal Care Team Section
--- NOTE | 2025-01-30 10:37 | PC.NURSE ---
On 01/30/25, the student, [ángel rain ], provided care and completed [facility] hospital documentation on this patient. I have reviewed the student's documentation and agree with the findings.
[2025-01-30 10:45] VITALS: BP 187/108; PULSE 102; RESP 12; TEMP 36.9; O2SAT 95
--- NOTE | 2025-01-30 10:45 | PC.NURSE ---
upon discharge b/p was still elevated pt stated she took a fire protection fabricator high caffeine tablet before coming to ER dr Rincon aware meds sent to pharmacy for all complaints
== END 2025-01-30 10:45 | disposition home or self-care (01) ==
PROVIDERS: Emergency Provider Emergency Medicine; Referring Provider Internal Medicine
DX: H60.501 Unspecified acute noninfective otitis externa, right ear (principal); H61.21 Impacted cerumen, right ear; F17.210 Nicotine dependence, cigarettes, uncomplicated; Z76.0 Encounter for issue of repeat prescription
CPT/HCPCS: 69210; 99283